=== PATIENT | male | born 1930 | race Hispanic/Latino ===

== ENCOUNTER 2018-01-12 11:25 | Inpatient (IN) | payer MEDICARE, OTHER ==
[2018-01-12 11:25] VITALS: BMI 50.8
[2018-01-12] MEDS ORDERED: Vancomycin 1gm in NS 250ml 1 GM/250 ML BAG IVPB STA (12:15)
[2018-01-12] MEDS ORDERED: cefTRIAXone 1 gm 1 GM/100 ML BAG IVPB SCH (12:15)
--- NOTE | 2018-01-12 12:16 | ED PDOC ---
Arrival/HPI - General Chief Complaint: Back Pain Time Seen by Provider: 01/12/18 11:26 Historian: Patient - History of Present Illness Narrative History of Present Illness (Text): 01/12/18 12:13 Flako Santana is an 87 year old male, whose past medical history includes CAD , Diabetes, and Dementia, who presents to the emergency department complaining of back pain for a few days/ Patient is a poor historian, history received from daughter who is patient's power of commercial litigation attorney. Today, nursing home aide noticed an ulcer to patient's lower spine. Daughter notes that patient sits and sleeps in his recliner chair all day. Patient denies any fever or any other complaints at this time. Time/Duration: < week Symptom Onset: Gradual Symptom Course: Unchanged Activities at Onset: Rest Context: Home Past Medical History - Provider Review Nursing Documentation Reviewed: Yes - Infectious Disease Hx of Infectious Diseases: None - Tetanus Immunization Tetanus Immunization: Unknown - Cardiac Hx Cardiac Disorders: Yes Hx Hypertension: Yes - Pulmonary Hx Tuberculosis: No - Neurological Hx Dementia: (? from previous chart) - HEENT Hx HEENT Disorder: Yes Other/Comment: [place] - Renal Hx Renal Disorder: No - Endocrine/Metabolic Hx Endocrine Disorders: Yes Hx Diabetes Mellitus Type 2: Yes - Hematological/Oncological Hx Blood Disorders: No Hx Cancer: No - Integumentary Hx Dermatological Disorder: No - Musculoskeletal/Rheumatological Hx Musculoskeletal Disorders: Yes Hx Back Pain: Yes - Gastrointestinal Hx Gastrointestinal Disorders: No - Genitourinary/Gynecological Hx Genitourinary Disorders: No - Psychiatric Hx Psychophysiologic Disorder: Yes Hx Anxiety: Yes Hx Depression: Yes Hx Schizophrenia: Yes Hx Substance Use: No - Past Surgical History Past Surgical History: Non-Contributing - Surgical History Hx Coronary Stent: Yes - Anesthesia Hx Anesthesia: Yes Hx Anesthesia Reactions: No Hx Malignant Hyperthermia: No - Suicidal Assessment Feels Threatened In Home Enviroment: No Family/Social History - Physician Review Nursing Documentation Reviewed: Yes Family/Social History: No Known Family HX Smoking Status: Never Smoked Hx Alcohol Use: No Hx Substance Use: No Hx Substance Use Treatment: No Allergies/Home Meds Allergies/Adverse Reactions: Allergies No Known Allergies Allergy (Verified 01/12/18 11:58) Home Medications: Home Meds Medication Instructions Recorded Confirmed ARIPiprazole [Abilify] 10 mg PO DAILY 01/12/18 01/12/18 Ascorbic Acid [Vitamin C 250 mg 1 tab PO DAILY 01/12/18 01/12/18 Tab] Cranberry Fruit Extract [Cranberry 500 mg PO BID 01/12/18 01/12/18 Concentrate] Insulin Detemir [Levemir] 10 unit SC 01/12/18 01/12/18 Latanoprost 0.005% Opht [Xalatan 1 drop OU HS 01/12/18 01/12/18 Opht] rOPINIRole [Requip] 0.25 mg PO BID 01/12/18 01/12/18 Review of Systems - Physician Review All systems were reviewed & negative as marked: Yes - Review of Systems Constitutional: absent: Fevers, Night Sweats Eyes: absent: Vision Changes ENT: absent: Hearing Changes Respiratory: absent: SOB, Cough Cardiovascular: absent: Chest Pain Gastrointestinal: absent: Abdominal Pain, Stool Changes Genitourinary Male: absent: Dysuria Musculoskeletal: absent: Arthralgias Skin: Ulcer (to lower back) Neurological: absent: Headache Endocrine: absent: Diaphoresis Hemo/Lymphatic: absent: Adenopathy Psychiatric: absent: Anxiety, Depression Physical Exam Vital Signs Reviewed: Yes Vital Signs Temp Pulse Resp BP Pulse Ox 01/12/18 15:25 67 18 122/69 97 01/12/18 14:43 18 01/12/18 13:07 64 18 124/71 97 01/12/18 11:39 97.9 F 68 18 126/76 97 Temperature: Afebrile Blood Pressure: Normal Pulse: Regular Respiratory Rate: Normal Appearance: Positive for: Well-Appearing, Non-Toxic, Comfortable Pain Distress: None Mental Status: Positive for: Alert and Oriented X 3 - Systems Exam Head: Present: Atraumatic, Normocephalic Pupils: Present: PERRL Extroacular Muscles: Present: EOMI Conjunctiva: Present: Normal Mouth: Present: Moist Mucous Membranes Neck: Present: Normal Range of Motion Respiratory/Chest: Present: Clear to Auscultation, Good Air Exchange. No: Respiratory Distress, Accessory Muscle Use Cardiovascular: Present: Regular Rate and Rhythm, Normal S1, S2. No: Murmurs Abdomen: No: Tenderness, Distention, Peritoneal Signs Back: Present: Other (2 cm erythematous ulcer to spinal process of lumbar spine) Upper Extremity: Present: Normal Inspection. No: Cyanosis, Edema Lower Extremity: Present: Normal Inspection. No: Edema Neurological: Present: GCS=15, CN II-XII Intact, Speech Normal Skin: Present: Warm, Dry, Normal Color, Other ((+)stage 1 presure ulcer lumbar with surroudign erytehma 3-4 cm). No: Rashes Psychiatric: Present: Alert, Oriented x 3, Normal Insight, Normal Concentration Medical Decision Making ED Course and Treatment: 01/12/18 12:18 Impression: 87 year old male complaining of lower back pain for a few days. Plan: -- Lumbar Spine CT w/o contrast -- Blood Culture -- Urine Culture -- Urinalysis -- Labs -- Rocephin and Vancomycin -- Reassess and disposition Prior Visits: Notes and results from previous visits were reviewed. Patient was last seen in the emergency department on 11/17/16 for chronic back pain. Patient was discharged. Progress Notes: 01/12/18 13:40 CT Lumbar Spine without contrast Creator : Flako Benedict MD FINDINGS: VERTEBRAE: Severe vertebral compression fractures are seen at L2 and L4. There is a mild compression of the superior endplate of L5. These findings were not present on the previous CT DISCS/SPINAL CANAL/NEURAL FORAMINA: L1-2: Severe compression fracture of L2 with encroachment of the spinal canal. There is mild stenosis L2-3: Severe compression fracture of L2. Moderate disc bulge. No significant stenosis L3-4: Moderate central stenosis. Severe disc degeneration L4-5: Disc bulge and degeneration. Severe compression fracture of L4 with moderate encroachment of the spinal canal L5-S1: Disc degeneration without stenosis PARASPINAL SOFT TISSUES:Unremarkable. OTHER FINDINGS:None. IMPRESSION: Severe vertebral compression deformities at L2 and L4. See comments Case discussed with Dr. Ngo, who is aware and accepts patient admission to his service. - Lab Interpretations Microbiology Results: Microbiology Results 01/12/18 13:00 Blood Blood Culture - Preliminary NO GROWTH AFTER 24 HOURS 01/12/18 12:58 Blood Blood Culture - Preliminary NO GROWTH AFTER 24 HOURS Lab Results: 01/12/18 12:58 01/12/18 12:58 Lab Results 01/12/18 12:58: Sodium 135, Potassium 5.1 H, Chloride 98, Carbon Dioxide 24, Anion Gap 19, BUN 19, Creatinine 0.7 L, Est GFR ( Amer) > 60, Est GFR ( Non-Af Amer) > 60, Random Glucose 546 H* D, Calcium 9.3, Total Bilirubin 0.6, AST 112 H, ALT 146 H, Alkaline Phosphatase 137 H, Total Protein 7.4, Albumin 4.1 , Globulin 3.3, Albumin/Globulin Ratio 1.2 01/12/18 12:58: PT 11.8, INR 1.03, APTT 39.4 H 01/12/18 12:58: WBC 4.7, RBC 4.30, Hgb 12.9 L, Hct 37.3 L, MCV 86.7, MCH 30.0, MCHC 34.6, RDW 13.3, Plt Count 137, MPV 10.2, Gran % 66.0, Lymph % (Auto) 27.4, [place] % (Auto) 5.8, Eos % (Auto) 0.4 L, Baso % (Auto) 0.4, Gran # 3.09, Lymph # ( Auto) 1.3, [place] # (Auto) 0.3, Eos # (Auto) 0.0, Baso # (Auto) 0.02, ESR 38 H I have reviewed the lab results: Yes - RAD Interpretation Radiology Orders: 01/12/18 12:13 LUMBAR SPINE W/O CONTRAST [CT] Stat - Medication Orders Current Medication Orders: Aripiprazole (Abilify) 15 mg PO DAILY [facility] PRN Reason: Protocol Ascorbic Acid (Vitamin C 500 Mg Tab) 250 mg PO DAILY [facility] Last Admin: 01/13/18 10:33 Dose: 250 mg Calcitonin [place] (Miacalcin) 200 intlu NS DAILY [facility] Last Admin: 01/13/18 13:25 Dose: 1 inhaler Calcium Carbonate (Caltrate) 600 mg PO DAILY [facility] Last Admin: 01/13/18 11:36 Dose: 600 mg Clonidine HCl (Catapres) 0.1 mg PO Q6H PRN PRN Reason: Other Docusate Sodium (Colace) 100 mg PO BID [facility] Last Admin: 01/13/18 10:33 Dose: 100 mg Enoxaparin Sodium (Lovenox) 30 mg SC DAILY [facility] PRN Reason: Protocol Last Admin: 01/13/18 10:34 Dose: 30 mg Subcutaneous Administrations Document 01/13/18 10:34 MJO (Rec: 01/13/18 10:34 [place] [facility] [id number][place] Injection Site MAR Injection Site Right Abdomen Charges for Administration # of Subcutaneous Administrations 1 Ergocalciferol (Drisdol 50,000 Intl Units Cap) 1 cap PO Q7D [facility] Last Admin: 01/13/18 11:36 Dose: 1 cap Ferrous Sulfate (Feosol) 324 mg PO BID [facility] Last Admin: 01/13/18 10:33 Dose: 324 mg Furosemide (Lasix) 20 mg PO DAILY [facility] Last Admin: 01/13/18 10:34 Dose: 20 mg MAR Blood Pressure Document 01/13/18 10:34 MJO (Rec: 01/13/18 10:34 MJO [facility] [id number][place] Blood Pressure Blood Pressure (100/60-150/90) 158/60 Glipizide (Glucotrol) 5 mg PO ACB [facility] Last Admin: 01/13/18 10:34 Dose: 5 mg Insulin Detemir (Levemir) 20 unit SC [facility] Last Admin: 01/12/18 22:39 Dose: 20 unit MAR Blood Glucose Document 01/12/18 22:39 IMT (Rec: 01/12/18 22:39 IMT [id number]) Blood Glucose Finger Stick Blood Glucose (70-120) 289 Subcutaneous Administrations Document 01/12/18 22:39 IMT (Rec: 01/12/18 22:39 IMT [id number]) Injection Site MAR Injection Site Left Arm Charges for Administration # of Subcutaneous Administrations 1 Insulin Human Regular (Humulin R Low) 0 units SC [facility] PRN Reason: Protocol Last Admin: 01/13/18 11:35 Dose: 3 units MAR Blood Glucose Document 01/13/18 11:35 MJO (Rec: 01/13/18 11:35 MJO [facility] [id number][place] Blood Glucose Finger Stick Blood Glucose (70-120) 268 Subcutaneous Administrations Document 01/13/18 11:35 MJO (Rec: 01/13/18 11:35 MJO [facility] [place][id number][place] Injection Site MAR Injection Site Right Arm Charges for Administration # of Subcutaneous Administrations 1 Latanoprost (Xalatan Opht) 0.02 ml OU HS [facility] Last Admin: 01/12/18 22:38 Dose: 0.02 ml Lidocaine (Lidoderm) 1 ea TD DAILY [facility] Last Admin: 01/13/18 10:32 Dose: 1 ea MAR Transdermal Patch Site Document 01/13/18 10:32 MJO (Rec: 01/13/18 10:33 MJO [facility] [id number][place] Transdermal Patch Site Transdermal Patch Site Right Lower Back Oxycodone HCl (Oxycodone Immediate Release Tab) 5 mg PO Q6H PRN PRN Reason: Pain, severe (8-10) Last Admin: 01/13/18 10:33 Dose: 5 mg MAR Pain Assessment Document 01/13/18 10:33 MJO (Rec: 01/13/18 10:33 MJO [facility] [place][id number][place] Pain Reassessment Is this a pain reassessment? No Sleep Is patient sleeping during reassessment? No Presence of Pain Presence of Pain Yes Pain Scale Used Pain Scale Used Numeric Location Pain Location Body Site Back Description Description Intermittent Intensity of Pain at present 8 Pain Behavior Facial Grimacing Aggravating Factors Changing Position Alleviating Factors/Management Medication Techniques Alleviating Factors Medication Re-Assess: MAR Pain Assessment Document 01/13/18 11:32 MJO (Rec: 01/13/18 11:32 MJO [facility] [id number][place] Pain Reassessment Is this a pain reassessment? Yes Sleep Is patient sleeping during reassessment? No Presence of Pain Presence of Pain Yes Pain Scale Used Pain Scale Used Numeric Location Upper or Lower Lower Pain Location Body Site Back Description Description Intermittent Intensity of Pain at present 5 Pantoprazole Sodium (Protonix Ec Tab) 40 mg PO 0600 [facility] Last Admin: 01/13/18 05:09 Dose: Not Given Non-Admin Reason: Patient Asleep Pregabalin (Lyrica) 50 mg PO BID [facility] Last Admin: 01/13/18 15:34 Dose: 50 mg Ropinirole HCl (Requip) 0.25 mg PO BID [facility] Last Admin: 01/13/18 10:33 Dose: 0.25 mg Silver Sulfadiazine (Silvadene 1% 25 Gm) 1 gm TP DAILY [facility] Last Admin: 01/13/18 10:28 Dose: 1 gm Tamsulosin HCl (Flomax) 0.4 mg PO DAILY [facility] Last Admin: 01/13/18 10:34 Dose: 0.4 mg Discontinued Medications Aripiprazole (Abilify) 10 mg PO DAILY [facility] PRN Reason: Protocol Last Admin: 01/13/18 10:45 Dose: 10 mg Behavioural Document 01/13/18 10:45 MJO (Rec: 01/13/18 10:45 MJO [facility] [id number][place] Maintenance Maintenance Dose Yes Re-Assess: Reassess Psych Meds Document 01/13/18 11:45 MJO (Rec: 01/13/18 11:55 MJO [id number]) Reassess Psych Med Ineffective-LIP notifed Ceftriaxone Sodium (Rocephin 1 Gram Ivpb) 1 gm in 100 mls @ 100 mls/hr IVPB DAILY [facility] PRN Reason: Protocol Last Admin: 01/12/18 13:10 Dose: 100 mls/hr eMAR Start Stop Document 01/12/18 13:10 ALFREDO (Rec: 01/12/18 14:23 ALFREDO [id number]) Intravenous Solution Start Date 01/12/18 Start Time 13:10 End Date 01/12/18 End time 13:40 Total Infusion Time 30 Vancomycin HCl (Vancomycin 1gm) 1 gm in 250 mls @ 167 mls/hr IVPB STAT [facility] PRN Reason: Protocol Stop: 01/12/18 13:44 Last Admin: 01/12/18 14:24 Dose: 167 mls/hr eMAR Start Stop Document 01/12/18 14:24 ALFREDO (Rec: 01/12/18 14:24 ALFREDO [id number]) Intravenous Solution Start Date 01/12/18 Start Time 14:24 End Date 01/12/18 End time 15:54 Total Infusion Time 90 Sodium Chloride (Sodium Chloride 0.9%) 1,000 mls @ 999 mls/hr IV .Q1H1M STA Stop: 01/12/18 14:30 Last Admin: 01/12/18 14:25 Dose: 999 mls/hr eMAR Start Stop Document 01/12/18 14:25 ALFREDO (Rec: 01/12/18 14:26 ALFREDO [id number]) Intravenous Solution Start Date 01/12/18 Start Time 14:26 End Date 01/12/18 End time 15:26 Total Infusion Time 60 Insulin Human Regular (Humulin R) 8 units IV STAT STA Stop: 01/12/18 13:32 Last Admin: 01/12/18 14:37 Dose: 8 units eMAR Start Stop Document 01/12/18 14:37 ALFREDO (Rec: 01/12/18 14:38 ALFREDO [id number]) Intravenous Solution Start Date 01/12/18 Start Time 14:35 End Date 01/12/18 End time 14:37 Total Infusion Time 2 MAR Blood Glucose Document 01/12/18 14:37 ALFREDO (Rec: 01/12/18 14:38 ALFREDO [id number]) Blood Glucose Finger Stick Blood Glucose (70-120) 546 - Scribe Statement The provider has reviewed the documentation as recorded by the Scribe Karin Avila Provider Scribe Attestation: All medical record entries made by the Scribe were at my direction and personally dictated by me. I have reviewed the chart and agree that the record accurately reflects my personal performance of the history, physical exam, medical decision making, and the department course for this patient. I have also personally directed, reviewed, and agree with the discharge instructions and disposition. Disposition/Present on Arrival - Present on Arrival Any Indicators Present on Arrival: No History of DVT/PE: No History of Uncontrolled Diabetes: No Urinary Catheter: No History of Decub. Ulcer: No History Surgical Site Infection Following: None - Disposition Have Diagnosis and Disposition been Completed?: Yes Diagnosis: Cellulitis, Pressure ulcer, Hyperglycemia, Compression fracture Disposition: HOSPITALIZED Disposition Time: 10:00 Condition: STABLE
[2018-01-12 13:25] LABS: BASO # 0.02 K/mm3 (0.0-2.0); BASO % 0.4 % (0.0-3.0); EOS % 0.4 % (1.5-5.0); GRAN # 3.09 (1.4-6.5); HEMOGLOBIN 12.9 g/dL (14.0-18.0); LYMPH # 1.3 (1.2-3.4); LYMPH % 27.4 % (22.0-35.0); MEAN CELL VOLUME 86.7 fl (80.0-105.0); MEAN CORPUSCULAR HGB CONC 34.6 g/dl (31.0-37.0); MEAN PLATELET VOLUME 10.2 fl (7.0-11.0); MONO # 0.3 (0.1-0.6); MONO % 5.8 % (1.0-6.0); RBC 4.3 10^6/uL (3.5-6.1); RED CELL DISTRIBUTION WIDTH 13.3 % (11.5-14.5); WHITE BLOOD COUNT 4.7 10^3/ul (4.5-11.0)
[2018-01-12 13:30] LABS: ALB/GLOB RATIO 1.2 (1.1-1.8); ALBUMIN 4.1 g/dL (3.0-4.8); ALT/SGPT 146 U/L (7-56); AST/SGOT 112 U/L (17-59); BLOOD UREA NITROGEN 19 mg/dL (7-21); CALCIUM 9.3 mg/dL (8.4-10.5); GFR AFRICAN-AMERICAN > 60; GFR NON-AFRICAN AMERICAN > 60
[2018-01-12] MEDS ORDERED: Sodium Chloride 0.9% 1,000 ML IV STA (13:30)
[2018-01-12] MEDS ORDERED: Insulin Regular 1 UNITS/0.01 ML ML IV STA (13:31)
[2018-01-12 13:33] LABS: INR 1.03 (0.93-1.08); PARTIAL THROMBOPLASTIN TIME 39.4 Seconds (25.1-36.5); PROTHROMBIN TIME 11.8 SECONDS (9.4-12.5)
--- NOTE | 2018-01-12 13:35 | CT ---
PROCEDURE: CT Lumbar Spine without contrast HISTORY: low back pain, h/o of pressure ulcer COMPARISON: CT of the abdomen and pelvis 09/30/2016 TECHNIQUE: Axial computed tomography images were obtained of the lumbar spine without the use of intravenous contrast. Coronal and sagittal reformatted images were created and reviewed. Radiation dose: Total exam DLP = 345 mGy-cm. This CT exam was performed using one or more of the following dose reduction techniques: Automated exposure control, adjustment of the mA and/or kV according to patient size, and/or use of iterative reconstruction technique. FINDINGS: VERTEBRAE: Severe vertebral compression fractures are seen at L2 and L4. There is a mild compression of the superior endplate of L5. These findings were not present on the previous CT DISCS/SPINAL CANAL/NEURAL FORAMINA: L1-2: Severe compression fracture of L2 with encroachment of the spinal canal. There is mild stenosis L2-3: Severe compression fracture of L2. Moderate disc bulge. No significant stenosis L3-4: Moderate central stenosis. Severe disc degeneration L4-5: Disc bulge and degeneration. Severe compression fracture of L4 with moderate encroachment of the spinal canal L5-S1: Disc degeneration without stenosis PARASPINAL SOFT TISSUES: Unremarkable. OTHER FINDINGS: None. IMPRESSION: Severe vertebral compression deformities at L2 and L4. See comments
--- NOTE | 2018-01-12 18:42 | CP.PCM.CON ---
History of Present Illness - History of Present Illness History of Present Illness: Surgery Flako Santana is an 87 year old male, whose past medical history includes bipolar, CAD, Diabetes, and Dementia, who presents to the emergency department complaining of back pain for a few days. Surgery is consulted to evaluate for pressure ulcer on the back. Patient is a poor historian and is agitated. history received from daughter who is patient's power of attorney at law. Today, home and school visitor noticed an ulcer to patient's lower spine. Daughter notes that patient sits and sleeps in his recliner chair all day. Patient denies any fever or any other complaints at this time. Pt c/o back pain. PMH : bipolar, CAD, Diabetes, and Dementia Review of Systems - Review of Systems Review of Systems: See HPI Past Patient History - Infectious Disease Hx of Infectious Diseases: None - Tetanus Immunizations Tetanus Immunization: Unknown - Past Medical History & Family History Past Medical History?: Yes - Past Social History Smoking Status: Unknown If Ever Smoked - CARDIAC Hx Cardiac Disorders: Yes Hx Hypertension: Yes - PULMONARY Hx Respiratory Disorders: No - NEUROLOGICAL Hx Neurological Disorder: Yes Hx Dementia: Yes - HEENT Hx HEENT Problems: Yes Other/Comment: hard of hearing - RENAL Hx Chronic Kidney Disease: No - ENDOCRINE/METABOLIC Hx Endocrine Disorders: Yes Hx Diabetes Mellitus Type 2: Yes - HEMATOLOGICAL/ONCOLOGICAL Hx Blood Disorders: No - INTEGUMENTARY Hx Dermatological Problems: No - MUSCULOSKELETAL/RHEUMATOLOGICAL Hx Musculoskeletal Disorders: Yes Hx Back Pain: Yes Hx Falls: No - GASTROINTESTINAL Hx Gastrointestinal Disorders: No - GENITOURINARY/GYNECOLOGICAL Hx Genitourinary Disorders: No - PSYCHIATRIC Hx Psychophysiologic Disorder: Yes Hx Anxiety: Yes Hx Depression: Yes Hx Paranoia: Yes Hx Schizophrenia: Yes Hx Substance Use: No - SURGICAL HISTORY Hx Surgeries: Yes Hx Coronary Stent: Yes Other/Comment: coronary stent - ANESTHESIA Hx Anesthesia: Yes Hx Anesthesia Reactions: No Hx Malignant Hyperthermia: No Meds Allergies/Adverse Reactions: Allergies Allergy/AdvReac Type Severity Reaction Status Date / Time No Known Allergies Allergy Verified 01/12/18 11:58 - Medications Medications: Current Medications Aripiprazole (Abilify) 10 mg PO DAILY [facility] PRN Reason: Protocol Ascorbic Acid (Vitamin C 500 Mg Tab) 250 mg PO DAILY [facility] Clonidine HCl (Catapres) 0.1 mg PO Q6H PRN PRN Reason: Other Docusate Sodium (Colace) 100 mg PO BID [facility] Last Admin: 01/12/18 18:27 Dose: Not Given Enoxaparin Sodium (Lovenox) 30 mg SC DAILY [facility] PRN Reason: Protocol Ferrous Sulfate (Feosol) 324 mg PO BID [facility] Furosemide (Lasix) 20 mg PO DAILY [facility] Glipizide (Glucotrol) 5 mg PO ACB [facility] Ceftriaxone Sodium (Rocephin 1 Gram Ivpb) 1 gm in 100 mls @ 100 mls/hr IVPB DAILY [facility] PRN Reason: Protocol Last Admin: 01/12/18 13:10 Dose: 100 mls/hr Insulin Detemir (Levemir) 20 unit SC HS [facility] Insulin Human Regular (Humulin R Low) 0 units SC ACHS [facility] PRN Reason: Protocol Latanoprost (Xalatan Opht) 0.02 ml OU HS [facility] Lidocaine (Lidoderm) 1 ea TD DAILY [facility] Oxycodone HCl (Oxycodone Immediate Release Tab) 5 mg PO Q6H PRN PRN Reason: Pain, severe (8-10) Pantoprazole Sodium (Protonix Ec Tab) 40 mg PO 0600 [facility] Ropinirole HCl (Requip) 0.25 mg PO BID [facility] Silver Sulfadiazine (Silvadene 1% 25 Gm) 1 gm TP DAILY [facility] Tamsulosin HCl (Flomax) 0.4 mg PO DAILY [facility] Physical Exam - Constitutional Appears: No Acute Distress, Agitated - Head Exam Head Exam: ATRAUMATIC, NORMAL INSPECTION, NORMOCEPHALIC - Eye Exam Eye Exam: EOMI, Normal appearance, PERRL Pupil Exam: NORMAL ACCOMODATION, PERRL - ENT Exam ENT Exam: Mucous Membranes Moist, Normal Exam - Neck Exam Neck exam: Positive for: Normal Inspection - Respiratory Exam Respiratory Exam: Clear to Auscultation Bilateral, NORMAL BREATHING PATTERN - Cardiovascular Exam Cardiovascular Exam: REGULAR RHYTHM. absent: Tachycardia - GI/Abdominal Exam GI & Abdominal Exam: Normal Bowel Sounds, Soft. absent: Distended, Tenderness - Rectal Exam Rectal Exam: NORMAL INSPECTION - Exam Exam: NORMAL INSPECTION - Extremities Exam Extremities exam: Positive for: full ROM, normal inspection - Back Exam Back exam: FULL ROM, tenderness. absent: CVA tenderness (L), CVA tenderness (R) , muscle spasm, NORMAL INSPECTION, paraspinal tenderness, rash noted, vertebral tenderness Additional comments: 2x2 3x2 cm excoriation of skin of the spinous processes. Erythema. Stage 1 ulcer - Neurological Exam Neurological exam: Alert, CN II-XII Intact, Normal Gait, Oriented x3, Reflexes Normal - Psychiatric Exam Psychiatric exam: Agitated, Anxious - Skin Skin Exam: Abrasion, Dry, Erythema, Normal Color, Warm Results - Vital Signs Recent Vital Signs: Last Vital Signs Temp 97.4 F L 01/12/18 18:00 Pulse 66 01/12/18 18:00 Resp 20 01/12/18 18:00 BP 154/75 H 01/12/18 18:00 Pulse Ox 100 01/12/18 18:00 - Labs Result Diagrams: 01/12/18 12:58 01/12/18 12:58 Labs: Laboratory Results - last 24 hr 01/12/18 01/12/18 16:08 17:19 POC Glucose (mg/dL) 234 H 229 H Assessment & Plan - Assessment and Plan (Free Text) Assessment: Stage 1 back pressure ulcer -Silvadene -Optiform -turn q2 hrs -air mattress Will AMARIS Taylor covering for Dr. Loo
[2018-01-12] MEDS: Insulin Reg-LOW-Coverage SC SCH (22:35)
[2018-01-12] MEDS: Latanoprost 2.5 ml Opht Soln OU SCH (22:38)
[2018-01-12] MEDS: Insulin Detemir 100 units/ml Vial (Levemir) SC SCH (22:39)
[2018-01-13] MEDS: oxyCODONE 5 mg Immediate Release Tab PO PRN ×2 (00:16→10:33)
[2018-01-13] MEDS: Pantoprazole 40 mg EC Tab PO SCH (05:09)
[2018-01-13 07:06] LABS: ALB/GLOB RATIO 1.1 (1.1-1.8); ALBUMIN 3.5 g/dL (3.0-4.8); ALT/SGPT 136 U/L (7-56); AST/SGOT 117 U/L (17-59); BASO # 0.03 K/mm3 (0.0-2.0); BASO % 0.5 % (0.0-3.0); BLOOD UREA NITROGEN 16 mg/dL (7-21); CALCIUM 8.9 mg/dL (8.4-10.5); EOS # 0.1 (0.0-0.7); EOS % 2.2 % (1.5-5.0); GFR AFRICAN-AMERICAN > 60; GFR NON-AFRICAN AMERICAN > 60; GRAN # 3.2 (1.4-6.5); GRAN % 55.1 % (50.0-68.0); HEMOGLOBIN 12.6 g/dL (14.0-18.0); LYMPH # 2.1 (1.2-3.4); LYMPH % 36.5 % (22.0-35.0); MEAN CELL VOLUME 86.1 fl (80.0-105.0); MEAN CORPUSCULAR HEMOGLOBIN 30.3 pg (25.0-35.0); MEAN CORPUSCULAR HGB CONC 35.2 g/dl (31.0-37.0); MEAN PLATELET VOLUME 9.5 fl (7.0-11.0); MONO # 0.3 (0.1-0.6); MONO % 5.7 % (1.0-6.0); RBC 4.16 10^6/uL (3.5-6.1); RED CELL DISTRIBUTION WIDTH 13.2 % (11.5-14.5); WHITE BLOOD COUNT 5.8 10^3/ul (4.5-11.0)
[2018-01-13] MEDS: Insulin Reg-LOW-Coverage SC SCH ×4 (08:21→22:28)
[2018-01-13] MEDS: Silver Sulfadiazine 1% Cream (25 gm) TP SCH (10:28)
[2018-01-13] MEDS: Lidocaine 5% Patch TD SCH (10:32)
[2018-01-13] MEDS: Enoxaparin 30 mg Syringe SC SCH (10:34)
[2018-01-13] MEDS ORDERED: Ergocalciferol 50,000 Intl Units Cap PO SCH (11:30)
[2018-01-13] MEDS: Calcitonin 200 Int Units/Inh Nasal Spray (3.7 ml) NS SCH (13:25)
[2018-01-13] MEDS: Insulin Detemir 100 units/ml Vial (Levemir) SC SCH (22:32)
[2018-01-13] MEDS: Latanoprost 2.5 ml Opht Soln OU SCH (22:32)
[2018-01-14] MEDS: Insulin Reg-LOW-Coverage SC SCH ×4 (08:30→21:50)
--- NOTE | 2018-01-14 09:50 | CON ---
DATE: HISTORY OF PRESENT ILLNESS: The patient is an 87-year-old white male, well known to me, who was brought into the hospital because of concern over an ulcer on the patient's lower spine. His daughter had noted that he had been sleeping in his recliner all day. The patient is well known to me. In addition to his medical history that includes coronary artery disease, diabetes, he has had a psychiatric diagnosis that defies easy description but which has included the possibility of a schizoaffective disorder and with some demented form features. The patient had been under my care for a number of years with my nurse having interacted with him in September 2016. At that time, he had exhibited an altered mental state, seems somewhat confused and was poorly compliant. It was noted then, as it is noted now that he generally did better when he was compliant with his psychotropic medication (Abilify) which stabilized his mood lability and his disorganized thinking and his irritability and perseverative thinking and speech, but with he always seeking to either lower or stop his medication with poor insight as to why he would take it. In September 2016 admission, he was noted to have perihepatic and perisplenic ascites. The patient is a father of four children, but their involvement in his care has been intermittent. One daughter presently has power of assistant attorney general according to notes. For a number of years, it was recommended that he not live alone, but his children, some of whom are angry with him, blaming him for the of their mother (his ) have been intermittently attentive to his needs. It was at one time, arranged or thought to be arranged that his family would assist in his moving to an assisted-living facility at the [facility], but this apparently has not transpired. It is my understanding that the patient spent some of his time at the [facility] with his children and some of his time in [place], although I have not seen him since his prior admission. He is a twin hills of [place] and has proudly showed me pictures of him in [place] [employer] uniform from the 1920s. Presently, he was able to recognize me, looks as if he has lost a significant amount of weight since my last interaction with him, rambled incessantly with much thought derailment, discussing a number of issues, including my prior care of him, his marriage, his children, being particularly incensed that one of his sons (Dario) had heaped a cursive epithet at him (for reasons uncertain to me). The patient does not have a history of substance abuse. Presently, the patient was seen by Dr. You who evaluated his back pain. A lumbar spine CT scan taken yesterday showed several vertebral compression fractures at L2 and L4 with a mild compression on the superior endplate of L5. These findings were not present at a previous CT scan. The L2 fracture is encroaching on the spinal canal which has mild stenosis. There is a moderate disk bulge with no significant stenosis at L2-L3, L3-L4; has moderate central stenosis with severe disk degeneration, L4-L5; has disk bulge and degeneration with severe compression fracture of L4 with moderate encroachment of the spinal canal, L5-S1 has disk degeneration without stenosis. A CBC with differential shows low hemoglobin of 12.6, hematocrit 35.8, granulocyte percent elevated at 36.5. A biochemical profile showed a slightly elevated creatinine of 0.6 with glucose of 162, AST elevated at 117 and ALT elevated at 136. His urine shows 100 and glucose 500 with trace ketones and moderate blood. PTT on 01/12 was 39.4. The patient is presently being maintained on Caltrate, Catapres, Colace, Drisdol, Feosol, Flomax, Glucotrol, Humulin R ____, Lasix, Levemir, Lidoderm, Lovenox and Lyrica. I have presently increased his Abilify from 10 to 15 mg per day. Blood pressure 158/60, temperature 97.9, pulse 65, respiratory rate 18. DIAGNOSIS: Schizoaffective disorder. The patient is responding and doing better. He is more focused, attentive and interactive, even in a credible, sometimes pleasant way. It is unclear at this juncture, to what extent a dementiform process might interfere with his level of recovery. We will monitor weekly and I will try to speak with the family. Jake Alcaraz MD/ PhD
--- NOTE | 2018-01-14 09:53 | CON ---
DATE: LOCATION: Patient is in room 563, bed 2. Patient was seen earlier this morning. CHIEF COMPLAINT: Back pain times several days. HISTORY OF PRESENT ILLNESS: This is an 87-year-old male, who appears much much older than stated age with history of bipolar, coronary artery disease, hypertension, diabetes, congestive heart failure, dementia, is a poor historian, depression and schizophrenia, BPH, anxiety, high cholesterol, hepatitis C, history of latent tuberculosis and history of cirrhosis of liver, and he is admitted now with back pain. Infectious Disease consultation requested. There has been no fevers reported. No chills are reported. No chest pain. REVIEW OF SYSTEMS: Twelve-point review of systems is performed. PAST MEDICAL HISTORY: Significant for bipolar, coronary artery disease, hypertension, diabetes, congestive heart failure, dementia, depression, schizoaffective, anxiety, high cholesterol, hepatitis C and cirrhosis of the liver and history of latent tuberculosis and patient is a poor historian. PAST SURGICAL HISTORY: Cardiac catheterization with stent placement. ALLERGIES: PATIENT HAS NO KNOWN ALLERGIES. MEDICATIONS: Reviewed. PHYSICAL EXAMINATION: GENERAL: Patient is in bed, in no acute distress, however, chronically ill, appears much older than stated age. VITAL SIGNS: Temperature 97, heart rate 91, blood pressure was 158/60, he did have an episode of blood pressure going down to 87/52, and a respiratory rate of 18, was up to 20. O2 saturation of 98%. HEENT: Unremarkable. NECK: Supple. LUNGS: Have decreased breath sounds. HEART: Normal S1 and S2. ABDOMEN: Soft, nontender. BACK: There are 2 small ulcers on his lower back. No evidence of infection there. LABORATORY EXAMINATION: Reveals a white count of 4.7 with a hemoglobin of 12, sed rate is 38. Chemistries are noted. BUN of 16 and creatinine of 0.6. LFTs are elevated and microbiology with the blood cultures are negative. Patient had a lumbar CT scan, which showed severe vertebral compression fractures and deformities and emergency room chart is noted and Dr. You's consultation was reviewed and severe vertebral compression deformities at L3 and L4 is also seen. ASSESSMENT AND PLAN: This is an 87-year-old male with past medical history of being bipolar, schizoaffective, coronary artery disease, diabetes mellitus, dementia and congestive heart failure, depression, hepatitis C, and cirrhosis of the liver with history of latent tuberculosis, with 2 small ulcers on the lower back, not infected with severe vertebral compression deformities, negative blood culture and a C-reactive protein is low with a sed rate of 38, normal white count. Currently, blood cultures and urine cultures have been ordered. Patient was given a dose of vancomycin. No evidence of infection. We will hold off any antibiotics. We will follow closely with you. Patient appears chronically ill and debilitated. Dickson Brewster MD
[2018-01-14] MEDS: Enoxaparin 30 mg Syringe SC SCH (10:38)
[2018-01-14] MEDS: Lidocaine 5% Patch TD SCH (10:39)
[2018-01-14] MEDS: Calcitonin 200 Int Units/Inh Nasal Spray (3.7 ml) NS SCH (10:40)
--- NOTE | 2018-01-14 11:00 | CP.PCM.PN ---
Subjective - Date & Time of Evaluation Date of Evaluation: 01/14/18 Time of Evaluation: 10:56 - Subjective Subjective: Surgery Progress Note: Patient seen and assessed at bedside. Patient resting comfortably in bed. Patient denies fevers, chills, chest pain, SOB, abdominal pain, N/V/D/C or changes in urine output. Objective - Vital Signs/Intake and Output Vital Signs (last 24 hours): Temp Pulse Resp BP Pulse Ox 98.6 F 70 18 150/69 96 01/14/18 06:00 01/14/18 06:00 01/14/18 06:00 01/14/18 10:36 01/14/18 06:00 Intake and Output: 01/14/18 01/14/18 06:59 18:59 Intake Total 600 Balance 600 - Medications Medications: Current Medications Aripiprazole (Abilify) 15 mg PO DAILY [facility] PRN Reason: Protocol Ascorbic Acid (Vitamin C 500 Mg Tab) 250 mg PO DAILY [facility] Last Admin: 01/14/18 10:37 Dose: 250 mg Calcitonin [place] (Miacalcin) 200 intlu NS DAILY [facility] Last Admin: 01/14/18 10:40 Dose: 1 inhaler Calcium Carbonate (Caltrate) 600 mg PO DAILY [facility] Last Admin: 01/13/18 11:36 Dose: 600 mg Clonidine HCl (Catapres) 0.1 mg PO Q6H PRN PRN Reason: Other Docusate Sodium (Colace) 100 mg PO BID [facility] Last Admin: 01/14/18 10:36 Dose: 100 mg Enoxaparin Sodium (Lovenox) 30 mg SC DAILY [facility] PRN Reason: Protocol Last Admin: 01/14/18 10:38 Dose: 30 mg Ergocalciferol (Drisdol 50,000 Intl Units Cap) 1 cap PO Q7D [facility] Last Admin: 01/13/18 11:36 Dose: 1 cap Ferrous Sulfate (Feosol) 324 mg PO BID [facility] Last Admin: 01/14/18 10:35 Dose: 324 mg Furosemide (Lasix) 20 mg PO DAILY [facility] Last Admin: 01/14/18 10:36 Dose: 20 mg Glipizide (Glucotrol) 5 mg PO ACB [facility] Last Admin: 01/13/18 10:34 Dose: 5 mg Insulin Detemir (Levemir) 20 unit SC HS [facility] Last Admin: 01/13/18 22:32 Dose: 20 unit Insulin Human Regular (Humulin R Low) 0 units SC ACHS [facility] PRN Reason: Protocol Last Admin: 01/13/18 22:28 Dose: Not Given Latanoprost (Xalatan Opht) 0.02 ml OU HS [facility] Last Admin: 01/13/18 22:32 Dose: 0.02 ml Lidocaine (Lidoderm) 1 ea TD DAILY [facility] Last Admin: 01/14/18 10:39 Dose: 1 ea Oxycodone HCl (Oxycodone Immediate Release Tab) 5 mg PO Q6H PRN PRN Reason: Pain, severe (8-10) Last Admin: 01/13/18 10:33 Dose: 5 mg Pantoprazole Sodium (Protonix Ec Tab) 40 mg PO 0600 [facility] Last Admin: 01/13/18 05:09 Dose: Not Given Pregabalin (Lyrica) 50 mg PO BID [facility] Last Admin: 01/14/18 10:38 Dose: 50 mg Ropinirole HCl (Requip) 0.25 mg PO BID [facility] Last Admin: 01/14/18 10:36 Dose: 0.25 mg Silver Sulfadiazine (Silvadene 1% 25 Gm) 1 gm TP DAILY [facility] Last Admin: 01/13/18 10:28 Dose: 1 gm Tamsulosin HCl (Flomax) 0.4 mg PO DAILY [facility] Last Admin: 01/14/18 10:37 Dose: 0.4 mg - Labs Labs: 01/13/18 06:15 01/13/18 06:15 PT 11.8 SECONDS (9.4-12.5) 01/12/18 12:58 INR 1.03 (0.93-1.08) 01/12/18 12:58 APTT 39.4 Seconds (25.1-36.5) H 01/12/18 12:58 - Constitutional Appears: Non-toxic, No Acute Distress - Head Exam Head Exam: ATRAUMATIC, NORMOCEPHALIC - Eye Exam Eye Exam: EOMI, Normal appearance - Respiratory Exam Respiratory Exam: NORMAL BREATHING PATTERN. absent: Accessory Muscle Use, Respiratory Distress - GI/Abdominal Exam GI & Abdominal Exam: Soft. absent: Tenderness - Neurological Exam Neurological Exam: Alert, Awake, Oriented x3 - Psychiatric Exam Psychiatric exam: Normal Affect, Normal Mood - Skin Additional comments: 2x2 and 3x2 cm excoriation of skin of the spinous processes with erythema; stage one pressure ulcer Assessment and Plan - Assessment and Plan (Free Text) Assessment: 87 year old male with stage one pressure ulcer of the back Plan: -Continue wound care with Silvadene/Optifoam applications -Continue Q2H repositioning and air mattress -Discussed with attending Neelima Pereyra PGY1
[2018-01-14] MEDS: Silver Sulfadiazine 1% Cream (25 gm) TP SCH (11:01)
--- NOTE | 2018-01-14 21:11 | CP.PCM.PN ---
Subjective - Date & Time of Evaluation Date of Evaluation: 01/14/18 Time of Evaluation: 13:00 - Subjective Subjective: Back pain is slightly better, no fevers. Objective - Vital Signs/Intake and Output Vital Signs (last 24 hours): Temp Pulse Resp BP Pulse Ox 98.6 F 90 18 96/76 L 96 01/14/18 14:00 01/14/18 14:00 01/14/18 14:00 01/14/18 14:00 01/14/18 14:00 Intake and Output: 01/14/18 01/15/18 18:59 06:59 Intake Total 480 Balance 480 - Medications Medications: Current Medications Aripiprazole (Abilify) 15 mg PO DAILY [facility] PRN Reason: Protocol Last Admin: 01/14/18 11:25 Dose: Not Given Ascorbic Acid (Vitamin C 500 Mg Tab) 250 mg PO DAILY [facility] Last Admin: 01/14/18 10:37 Dose: 250 mg Calcitonin [place] (Miacalcin) 200 intlu NS DAILY [facility] Last Admin: 01/14/18 10:40 Dose: 1 inhaler Calcium Carbonate (Caltrate) 600 mg PO DAILY [facility] Last Admin: 01/14/18 12:48 Dose: 600 mg Clonidine HCl (Catapres) 0.1 mg PO Q6H PRN PRN Reason: Other Docusate Sodium (Colace) 100 mg PO BID [facility] Last Admin: 01/14/18 17:23 Dose: 100 mg Enoxaparin Sodium (Lovenox) 30 mg SC DAILY [facility] PRN Reason: Protocol Last Admin: 01/14/18 10:38 Dose: 30 mg Ergocalciferol (Drisdol 50,000 Intl Units Cap) 1 cap PO Q7D [facility] Last Admin: 01/13/18 11:36 Dose: 1 cap Ferrous Sulfate (Feosol) 324 mg PO BID [facility] Last Admin: 01/14/18 17:23 Dose: 324 mg Furosemide (Lasix) 20 mg PO DAILY [facility] Last Admin: 01/14/18 10:36 Dose: 20 mg Glipizide (Glucotrol) 5 mg PO ACB [facility] Last Admin: 01/14/18 08:30 Dose: Not Given Insulin Detemir (Levemir) 20 unit SC HS [facility] Last Admin: 01/13/18 22:32 Dose: 20 unit Insulin Human Regular (Humulin R Low) 0 units SC ACHS [facility] PRN Reason: Protocol Last Admin: 01/14/18 16:45 Dose: 2 units Latanoprost (Xalatan Opht) 0.02 ml OU HS [facility] Last Admin: 01/13/18 22:32 Dose: 0.02 ml Lidocaine (Lidoderm) 1 ea TD DAILY [facility] Last Admin: 01/14/18 10:39 Dose: 1 ea Oxycodone HCl (Oxycodone Immediate Release Tab) 5 mg PO Q6H PRN PRN Reason: Pain, severe (8-10) Last Admin: 01/13/18 10:33 Dose: 5 mg Pantoprazole Sodium (Protonix Ec Tab) 40 mg PO 0600 [facility] Last Admin: 01/13/18 05:09 Dose: Not Given Pregabalin (Lyrica) 50 mg PO BID [facility] Last Admin: 01/14/18 17:23 Dose: 50 mg Ropinirole HCl (Requip) 0.25 mg PO BID [facility] Last Admin: 01/14/18 17:23 Dose: 0.25 mg Silver Sulfadiazine (Silvadene 1% 25 Gm) 1 gm TP DAILY [facility] Last Admin: 01/14/18 11:01 Dose: 1 gm Tamsulosin HCl (Flomax) 0.4 mg PO DAILY [facility] Last Admin: 01/14/18 10:37 Dose: 0.4 mg - Labs Labs: 01/13/18 06:15 01/13/18 06:15 PT 11.8 SECONDS (9.4-12.5) 01/12/18 12:58 INR 1.03 (0.93-1.08) 01/12/18 12:58 APTT 39.4 Seconds (25.1-36.5) H 01/12/18 12:58 - Constitutional Appears: Chronically Ill - Head Exam Head Exam: NORMAL INSPECTION - Respiratory Exam Respiratory Exam: Decreased Breath Sounds - Cardiovascular Exam Cardiovascular Exam: +S1, +S2 - GI/Abdominal Exam GI & Abdominal Exam: Soft. absent: Tenderness Assessment and Plan - Assessment and Plan (Free Text) Plan: Assessment lumbar compression fractures; no evidence of bacterial infection or sepsis CAD with chronic CHF DM HTN BPH history of hepatitis C history of latent TB schizophrenia bipolar disorder Plan continue to monitor off antibiotics since he is at risk for nosocomial infections
[2018-01-14] MEDS: Latanoprost 2.5 ml Opht Soln OU SCH (21:51)
[2018-01-14] MEDS: Insulin Detemir 100 units/ml Vial (Levemir) SC SCH (21:51)
[2018-01-15] MEDS: oxyCODONE 5 mg Immediate Release Tab PO PRN ×3 (00:26→17:34)
--- NOTE | 2018-01-15 04:47 | PN ---
DATE: 01/14/2018 SUBJECTIVE: The patient is an 87-year-old white male with schizoaffective disorder and perhaps some dementia. The patient is alert, he is sitting in his chair, he appears to be more robust, less irritable than yesterday, and is less perseverative than yesterday and less agitated than yesterday. Whether this is due to his improved health status because he is hospitalized, or because of increase in his Abilify, or both is uncertain at this juncture. PLAN: I have discussed the patient's case with nursing and has given my approval that this patient is likely to benefit from transfer to the Transitional Care Unit. His laboratory values were reviewed with his morning glucose 187. Blood pressure 150/69. Will maintain on present medication. Supportive therapy offered. Jake Alcaraz MD/ PhD
[2018-01-15] MEDS: Pantoprazole 40 mg EC Tab PO SCH (07:31)
--- NOTE | 2018-01-15 08:26 | HP ---
CHIEF COMPLAINT: The patient came in because of a large sacral decubitus in his spine. HISTORY OF PRESENT ILLNESS: The patient is an 87-year-old male with history of psychiatric problem, chronic back pain, diabetes, hypertension, chronic , hepatitis C. The patient came in by the daughter and nurse brought in, has been seen in Surgery and was called in to be admitted at [facility]. The patient seems to be lying down more time on his back, not moving a lot. He does not want to go to [facility]. He does not want to go any place; so, he is staying at home with some assistance from nurses and homemakers and daughters, but developed an ulcer in his back, was admitted for evaluation for osteomyelitis, cellulitis. He does also have a history of psychiatric problems, paranoid disorders. At this time, he denied any nausea, any vomiting, any fever, nothing reported by his daughter except a large decubitus ulcer in the spine, possibly exposing the bones. There is no other complaint. PAST MEDICAL HISTORY: As I mentioned, he does have chronic back pain, chronic , he does have paranoid disorder, psychosis. He has diabetes type 2, hypertension, history of chronic pancreatitis at one time, chronic hepatitis C, chronic leg pain, sciatica. HOME MEDICATIONS: Abilify 10 mg p.o. daily. He takes also vitamin C, Requip 0.25 mg b.i.d., Lidoderm patch, Glucotrol 5 mg a.c. breakfast. He takes also insulin Levemir 10 units subcu every at bedtime, Protonix 40 p.o. daily, iron pills twice a day, Colace b.i.d., Catapres 0.1 mg every 6 hours p.r.n. for high blood pressure. He is taking also Xalatan drops one drop each eye once a day. He also has Flomax 0.4 mg once a day, Lasix 20 mg once a day. ALLERGIES: NO KNOWN ALLERGY. SOCIAL HISTORY: He does not smoke or drink. He lives in by himself with some assistance, daughter's assistance, nurse's assistance. The patient refused to go to [place] [facility]. He does have psychosis. REVIEW OF SYSTEMS: Also has psychosis, has sometimes depression, interpersonal relationship with his daughter and to son, he feels sometimes being blamed for the of his , which makes him a kind of depressed and crying. He also has chronic back pain, chronic arthritis, sometimes constipation. PHYSICAL EXAMINATION: VITAL SIGNS: On 01/13/2018, his temperature is 97.9, heart rate 91, blood pressure was 130/71, respirations 18, sat 98% on room air. HEAD AND NECK: Normal. No JVD. No thyromegaly. CHEST: Clear. Good air entry. CARDIAC: First sound and second sound are normal. ABDOMEN: Soft, nontender. EXTREMITIES: No edema. NEUROLOGIC: Normal, except he has general weakness, needs assistance with walk. BACK: There is large spine problem and large ulcer in the upper lumbar area, which is a kind of deep, covered, and also has a small sacral decubiti in the bottom of his lower sacral area. LABORATORY STUDY: White count 5.8, hemoglobin 12.6, hematocrit 35.8, platelets . Chemistry noted for sodium 137, potassium 4.2, chloride 101, bicarb 26, BUN 16, creatinine 0.6, blood sugar 162. Also AST 117, ALT 136. The patient also has a PT, which is normal, 1.03; PTT 39.4. The patient also had lumbar spine CT, which has been read as severe compression fracture deformity at L2 and L3. There is no obvious osteomyelitis on the CT. IMPRESSION AND PLAN: 1. This is an 87-year-old male with decubitus ulcer in his upper lumbar spine area, seems deep, cellulitic. We will admit the patient for IV antibiotic. We will get an Infectious Disease consult to rule out any osteomyelitis and we will get a surgical consult with Dr. Loo to help us with the treatment of the ulcer. Wound care nurse will look at that too. We will do local treatments and dressing changes. 2. He does have chronic back pain, diabetes, hypertension. We will resume all his medications. 3. The patient does have paranoia, psychosis disorder, with some depressive symptoms. We will get back to Dr. Alcaraz, psychiatrist, to evaluate him. We will continue current therapy. Resume his meds. Get gastrointestinal and deep vein thrombosis prophylaxis, and we will follow up clinically. Ike Ngo MD [facility] # [id number]
[2018-01-15] MEDS: Enoxaparin 30 mg Syringe SC SCH (10:03)
[2018-01-15] MEDS: Insulin Reg-LOW-Coverage SC SCH ×3 (10:05→17:35)
[2018-01-15] MEDS: Lidocaine 5% Patch TD SCH (10:05)
[2018-01-15] MEDS: Silver Sulfadiazine 1% Cream (25 gm) TP SCH (10:06)
[2018-01-15] MEDS: Calcitonin 200 Int Units/Inh Nasal Spray (3.7 ml) NS SCH (10:06)
--- NOTE | 2018-01-15 15:26 | PN ---
DATE: 01/15/2018 SUBJECTIVE: The patient seems doing well, is comfortable, sitting on a chair. No chest pain. Does not complain of any pain. He is willing to walk. He did walk with a walker with assistance, doing well. PHYSICAL EXAMINATION: Please see note for 01/14/2018. VITAL SIGNS: Temperature 98.6, heart rate 94, blood pressure 147/87, respirations 18, sat 96% on room air. HEAD AND NECK: Normal. No JVD. No thyromegaly. CHEST: Clear. Good air entry. CARDIAC: First sound and second sound normal. There is systolic murmur. ABDOMEN: Soft, nontender. EXTREMITIES: There is no edema. NEUROLOGICAL: Move all extremities. He is alert, awake. The patient seems talking irrelevant facts to the present problem and seen by psychiatrist. BACK: The back exam shows large sacral decubitus. He did notice a large ulcer on the upper lumbar area in the midline covered with a gauze. There is lower decubitus ulcer in the lower sacral area. LABORATORY DATA: Noted for sugar in the 100-200 range. IMPRESSION AND PLAN: 1. There is decubitus in the lower back area. We will continue local wound care, Silvadene. Local wound care everyday. The patient seen by Wound Care people. There is no osteomyelitis on the CAT scan. There is only multiple compression fracture, which is old. We will continue local wound care. 2. The patient does have chronic psychosis. As per psychiatrist, possible schizoaffective disorder. We will continue the Abilify 15 mg p.o. daily. Seen by Dr. Alcaraz. Continue current therapy. 3. Diabetes, insulin dependent. Continue Levemir 20 units subcu at bedtime plus insulin coverage and Glucotrol 5 mg before breakfast. We may need to increase that, but we will see how the patient do. Risk of hypoglycemia is considered to be high with the patient lives most of the time by himself. 4. Hypertension, stable. Chronic leg edema, seems doing well with Lasix 20 p.o. daily. 5. Leg cramps, doing okay with Requip. May need to increase it if he continue have any complaint. His underlying glaucoma treated with Xalatan according to orders plus Lyrica 50 mg b.i.d. for his leg cramps. We will monitor his inputs. Continue gastrointestinal and deep venous thrombosis prophylaxis. Continue vitamin D, calcium. The patient may benefit from physical therapy and Transitional Care Unit evaluation. At this time, continue Abilify 15 mg at bedtime, calcium citrate, Catapres 0.1 every 6 hours p.r.n., Colace, vitamin D, iron pills, Flomax 0.4, Glucotrol 5 mg before breakfast, Lasix 20 p.o. daily, Levemir 20 units subcu at bedtime, Lidoderm 1 daily, Lovenox 30 subcu daily, Lyrica 50 b.i.d., calcitonin daily intranasally and Ultram for his compression fractures. Continue oxycodone 5 mg every 6 hours, pantoprazole 40 mg daily, Requip 0.25 b.i.d., Silvadene, vitamin C and Xalatan ophthalmic drops. Ike Ngo MD
--- NOTE | 2018-01-15 18:39 | PN ---
DATE: 01/15/2018 SUBJECTIVE: The patient is an 87-year-old white male with schizoaffective disorder. The patient is alert, oriented, experiencing about a number of issues. He had apparently read a new local newspaper and is talking about the story of an being thrown into a garbage dump, speaking about emigrants trying to come in from [place], etc. As this is pattern, he is difficult to terminate conversation with as he tends to go "on and on" with no logical abbreviation point. This is often times his baseline behavior. He is later to go to the transitional care unit. I have reviewed his situation with Nursing. The patient has not been considered to be in a management problem. He missed his Abilify yesterday for reasons uncertain, but should be getting 15 mg daily. He is also on calcium carbonate, Catapres, Colace, ergocalciferol, Feosol, Flomax, Glucotrol, insulin, Lasix, Levemir, Lovenox, Lyrica. CBC and differential yesterday showed hemoglobin 12 . Blood sugar this morning was 170. Blood pressure 134/68, temperature 97.4, pulse 62, respiratory rate 22. Jake Alcaraz MD/ PhD
[2018-01-15] MEDS: Insulin Detemir 100 units/ml Vial (Levemir) SC SCH (22:44)
[2018-01-15] MEDS: Latanoprost 2.5 ml Opht Soln OU SCH (22:45)
[2018-01-15 23:15] VITALS: RESP 20
--- NOTE | 2018-01-16 01:13 | PN ---
DATE: 01/15/2018 SUBJECTIVE: The patient is in bed in no acute distress, was seen early this morning in room 563, bed 2. PHYSICAL EXAMINATION VITAL SIGNS: Temperature is 98, blood pressure is 103/60, respiratory rate of 16. HEENT: Examination of HEENT is unremarkable. NECK: Supple. LUNGS: Have decreased breath sounds. HEART: Normal S1 and S2. ABDOMEN: Soft, nontender. LABORATORY EXAMINATION: Reveals a white count of 5.8, hemoglobin of 12, platelets of 123. Coagulation is noted and a creatinine is 0.6. Microbiology reveals the blood cultures are negative. ASSESSMENT/PLAN: This is an 87-year-old, male with the lumbar compression fracture. No evidence of acute infection or sepsis. The patient with coronary artery disease and chronic congestive heart, diabetes mellitus, hypertension, benign prostatic hypertrophy, hepatitis C, currently off of antibiotics at risk for developing nosocomial infections. Review of orders confirms the patient to be off of antibiotics. Dickson Brewster MD cc:
[2018-01-16] MEDS: oxyCODONE 5 mg Immediate Release Tab PO PRN ×3 (02:03→17:04)
[2018-01-16] MEDS: Pantoprazole 40 mg EC Tab PO SCH ×2 (06:33→07:00)
[2018-01-16 09:04] VITALS: PULSE 61; TEMP 97.6; O2SAT 99
[2018-01-16] MEDS: Enoxaparin 30 mg Syringe SC SCH (09:19)
[2018-01-16] MEDS: Lidocaine 5% Patch TD SCH (09:22)
[2018-01-16] MEDS: Calcitonin 200 Int Units/Inh Nasal Spray (3.7 ml) NS SCH (09:23)
[2018-01-16] MEDS: Silver Sulfadiazine 1% Cream (25 gm) TP SCH (09:24)
[2018-01-16] MEDS: Insulin Reg-LOW-Coverage SC SCH ×3 (09:24→17:12)
[2018-01-16 09:32] VITALS: BP 121/65
--- NOTE | 2018-01-16 14:23 | PN ---
DATE: 01/15/2018 SUBJECTIVE: The patient is comfortable, sitting in the chair. OBJECTIVE: VITAL SIGNS: Temperature 97.8, heart rate 80, blood pressure 103/60, respirations 20, sat 99%.. HEAD AND NECK: Normal. No JVD. No thyromegaly. CHEST: Clear. CARDIAC: First sound and second sound normal. There is systolic murmur. ABDOMEN: Soft, nontender. EXTREMITIES: No edema. NEUROLOGIC: Normal except unsteady gait. LABORATORY DATA: Noted for sugar 280 and increased his insulin. IMPRESSION AND PLAN: 1. Generalized weakness, deconditioning, unstable gait. The patient will benefit from physical therapy, so avoid lying in bed and be more active that will help the back sore in the upper lumbar region. 2. Decubitus ulcer on upper lumbar and lower lumbosacral area. Continue local wound care, no need for intravenous antibiotics. The patient has no osteomyelitis. 3. The patient does have bipolar disorder, possible schizophrenia. Continue Abilify 15 mg p.o. daily and we will continue to follow up with the psychiatrist Dr. Alcaraz. 4. Peripheral neuropathy, chronic osteoarthritis. Continue oxycodone, continue Lyrica and Lidoderm patch on the lower back. 5. Diabetes insulin dependent, continue insulin 20 units subq at bedtime, in addition low insulin coverage. The patient also getting Glucotrol 5 mg daily. We will keep monitoring his sugar, try to avoid hypoglycemia especially at home by himself and we will continue to follow that. 6. Spine compression fracture. I will give calcium, vitamin D, and Miacalcin and physical therapy. It seems like chronic compression fracture. 7. Chronic glaucoma, iron deficiency anemia, prostate enlargement, congestive heart failure. Continue Lasix at 20 mg p.o. daily, continue Xalatan ophthalmic drops, continue Requip for his leg cramps and calcium and vitamin D. The patient also getting iron p.o. for his iron deficiency anemia. We will continue current therapy and we will talk to his daughter and we will see the plan of discharge for him. Ike Ngo MD [facility] # [id number]
--- NOTE | 2018-01-16 15:21 | PCM.PYCHPN ---
Psychiatric Progress Note - Psychiatric Progress Note Patient seen today, length of contact: 25 Patient Chief Complaint: anxiety Problems Identified/Issues Discussed: She has a chronic atypical disorder that is probably a schizoaffective disorder but which may have been now demented form features. His chronic psychiatric disorder has created family friction and alienation between he and at least some of his 4 children Medical Problems: Decubitus ulcer, osteomyelitis, peripheral neuropathy, diabetes mellitus, glaucoma, iron deficiency anemia, enlarged prostate gait disturbance, weakness Diagnostic Results: Laboratory Results - last 72 hr 01/13/18 01/13/18 01/14/18 16:14 21:25 06:48 POC Glucose (mg/dL) 200 H 255 H 100 01/14/18 01/14/18 01/14/18 11:41 16:06 21:37 POC Glucose (mg/dL) 187 H 232 H 284 H 01/15/18 01/15/18 01/15/18 07:09 11:40 16:05 POC Glucose (mg/dL) 170 H 163 H 263 H 01/15/18 01/16/18 01/16/18 22:30 06:43 11:08 POC Glucose (mg/dL) 198 H 115 H 155 H DSM 5 Symptoms Update: Patient is on her potentially manner pressured speech, some impulsivity, seems calmer and more interactive. He has underlying dependency needs and is difficult to terminate a conversation with him. Medication Change: No Medical Record Reviewed: Yes Mental Status Examination - Cognitive Function Orientation: Person, Place, Situation, Time Memory: Intact, Other Attention: WNL Concentration: WNL Fund of Knowledge: WNL Decription of patient's judgement and insights: Limited to his own perceptions which are often distorted - Mood Mood: Anxious - Affect Affect: Other - Speech Speech: Loud, Stammering, Pressured - Formal Thought Process Formal Thought Process: Other Psychotic Thoughts and Behaviors: None evident - Suicidal Ideation Suicidal Ideation: No - Homicidal Ideation Homicidal Ideation: No Goal/Treatment Plan - Goal/Treatment Plan Need for Continued Stay: Severe depression anxiety Progress Toward Problem(s) and Goals/Treatment Plan: Improving physically and mentally. He is appropriate for a TCU transfer when ready - Smoking Cessation Smoking Cessation Initiated: No Reason for not providing: Nonsmoker
== END 2018-01-16 17:18 | DRG 544 ==
LOC: ED 11:25 → ERH 13:41 → 5RNO 17:00
PROVIDERS: ADMIT Internal Medicine; ATTEND Internal Medicine
DX: M48.56XA Collapsed vertebra, not elsewhere classified, lumbar region, initial encounter for fracture (principal); L89.101 Pressure ulcer of unspecified part of back, stage 1; I25.10 Atherosclerotic heart disease of native coronary artery without angina pectoris; I11.0 Hypertensive heart disease with heart failure; I50.9 Heart failure, unspecified; F25.9 Schizoaffective disorder, unspecified; N40.0 Benign prostatic hyperplasia without lower urinary tract symptoms; F31.9 Bipolar disorder, unspecified; E11.42 Type 2 diabetes mellitus with diabetic polyneuropathy; H40.9 Unspecified glaucoma; B18.2 Chronic viral hepatitis C; M19.90 Unspecified osteoarthritis, unspecified site; E11.65 Type 2 diabetes mellitus with hyperglycemia; D50.9 Iron deficiency anemia, unspecified; K74.60 Unspecified cirrhosis of liver; F41.9 Anxiety disorder, unspecified; F03.90 Unspecified dementia, unspecified severity, without behavioral disturbance, psychotic disturbance, mood disturbance, and anxiety; E78.00 Pure hypercholesterolemia, unspecified; R25.2 Cramp and spasm; Z79.4 Long term (current) use of insulin; Z86.11 Personal history of tuberculosis

== ENCOUNTER 2018-01-16 17:18 | Inpatient (IN) | payer OTHER ==
[2018-01-16 17:41] VITALS: BMI 20.2
[2018-01-16] MEDS: Ergocalciferol 50,000 Intl Units Cap PO SCH (18:39)
[2018-01-16] MEDS: oxyCODONE 5 mg Immediate Release Tab PO PRN (19:39)
[2018-01-16] MEDS: Insulin Detemir 100 units/ml Vial (Levemir) SC SCH (21:27)
[2018-01-16] MEDS: Insulin Reg-LOW-Coverage SC SCH (21:29)
[2018-01-16] MEDS: Latanoprost 2.5 ml Opht Soln OU SCH (21:30)
[2018-01-16] MEDS ORDERED: Pneumococcal 23-Valent Vaccine IM ONE (23:29)
[2018-01-17] MEDS: Enoxaparin 30 mg Syringe SC SCH (06:18)
[2018-01-17] MEDS: Pantoprazole 40 mg EC Tab PO SCH (06:18)
[2018-01-17] MEDS: Insulin Reg-LOW-Coverage SC SCH ×4 (06:36→21:32)
[2018-01-17] MEDS: Calcitonin 200 Int Units/Inh Nasal Spray (3.7 ml) NS SCH (09:53)
[2018-01-17] MEDS: Lidocaine 5% Patch TD SCH (09:53)
[2018-01-17] MEDS: Silver Sulfadiazine 1% Cream (25 gm) TP SCH (09:53)
[2018-01-17] MEDS ORDERED: Silver Sulfadiazine 1% Cream (25 gm) TP SCH (10:00)
[2018-01-17] MEDS: oxyCODONE 5 mg Immediate Release Tab PO PRN ×3 (11:42→21:35)
--- NOTE | 2018-01-17 12:13 | CP.PCM.CON ---
History of Present Illness - History of Present Illness History of Present Illness: 87 year old male with PMH of CAD with chronic CHF, DM, HTN, BPH, history of hepatitis C, history of latent TB, schizophrenia, bipolar disorder was initially brought in to [facility] [place] because of back pain and was noted to have compression fractures in the lumbar vertebrae. He is being managed conservatively and is now transferred to [facility] for continued medical therapy and physical therapy. Infectious Diseases consult is requested to see if he needs antibiotics. Currently the patient has no fever or chills, no vomiting, no diarrhea, still with occasional back pain. Review of Systems - Review of Systems All systems: reviewed and no additional remarkable complaints except (as per HPI ) Past Patient History - Infectious Disease Hx of Infectious Diseases: None - Tetanus Immunizations Tetanus Immunization: Unknown - Past Medical History & Family History Past Medical History?: Yes - Past Social History Smoking Status: Never Smoked - CARDIAC Hx Cardiac Disorders: Yes Hx Hypercholesterolemia: Yes Hx Hypertension: Yes - PULMONARY Hx Tuberculosis: No - NEUROLOGICAL Hx Dementia: (? from previous chart) - HEENT Hx HEENT Problems: Yes Other/Comment: [place] - RENAL Hx Chronic Kidney Disease: No - ENDOCRINE/METABOLIC Hx Diabetes Mellitus Type 2: Yes - HEMATOLOGICAL/ONCOLOGICAL Hx Blood Disorders: No Hx Cancer: No - INTEGUMENTARY Hx Dermatological Problems: No - MUSCULOSKELETAL/RHEUMATOLOGICAL Hx Falls: Yes - GASTROINTESTINAL Hx Gastrointestinal Disorders: No - GENITOURINARY/GYNECOLOGICAL Hx Genitourinary Disorders: Yes (incontinent) Hx Reproductive Disorders: Yes (bph) - PSYCHIATRIC Hx Psychophysiologic Disorder: Yes Hx Anxiety: Yes Hx Depression: Yes Hx Schizophrenia: Yes Hx Substance Use: No - SURGICAL HISTORY Hx Coronary Stent: Yes - ANESTHESIA Hx Anesthesia: Yes Hx Anesthesia Reactions: No Hx Malignant Hyperthermia: No Meds Allergies/Adverse Reactions: Allergies Allergy/AdvReac Type Severity Reaction Status Date / Time No Known Allergies Allergy Verified 01/16/18 20:16 - Medications Medications: Current Medications Aripiprazole (Abilify) 15 mg PO DAILY MUNA PRN Reason: Protocol Ascorbic Acid (Vitamin C 500 Mg Tab) 250 mg PO DAILY MUNA PRN Reason: Protocol Calcitonin [place] (Miacalcin) 200 intlu NS DAILY MUNA PRN Reason: Protocol Calcium Carbonate (Caltrate) 600 mg PO DAILY MUNA PRN Reason: Protocol Clonidine HCl (Catapres) 0.1 mg PO Q6H PRN; Protocol PRN Reason: Other Docusate Sodium (Colace) 100 mg PO BID MUNA PRN Reason: Protocol Last Admin: 01/16/18 18:38 Dose: Not Given Enoxaparin Sodium (Lovenox) 30 mg SC 0600 MUNA PRN Reason: Protocol Last Admin: 01/17/18 06:18 Dose: 30 mg Ergocalciferol (Drisdol 50,000 Intl Units Cap) 1 cap PO Q7D MUNA PRN Reason: Protocol Last Admin: 01/16/18 18:39 Dose: Not Given Ferrous Sulfate (Feosol) 324 mg PO 0800,1600 MUNA PRN Reason: Protocol Furosemide (Lasix) 20 mg PO 0600 MUNA PRN Reason: Protocol Last Admin: 01/17/18 06:18 Dose: 20 mg Glipizide (Glucotrol) 5 mg PO 0630 MUNA PRN Reason: Protocol Last Admin: 01/17/18 06:18 Dose: 5 mg Insulin Detemir (Levemir) 20 unit SC HS MUNA PRN Reason: Protocol Last Admin: 01/16/18 21:27 Dose: 20 unit Insulin Human Regular (Humulin R Low) 0 units SC ACHS MUNA PRN Reason: Protocol Last Admin: 01/17/18 06:36 Dose: Not Given Latanoprost (Xalatan Opht) 0 ml OU HS MUNA PRN Reason: Protocol Last Admin: 01/16/18 21:30 Dose: 2.5 ml Lidocaine (Lidoderm) 1 ea TD DAILY MUNA PRN Reason: Protocol Lorazepam (Ativan) 0.5 mg PO Q4H PRN; Protocol PRN Reason: Agitation Last Admin: 01/16/18 19:38 Dose: 0.5 mg Oxycodone HCl (Oxycodone Immediate Release Tab) 5 mg PO Q6H PRN; Protocol PRN Reason: Pain, severe (8-10) Last Admin: 01/16/18 19:39 Dose: 5 mg Pantoprazole Sodium (Protonix Ec Tab) 40 mg PO 0600 MUNA PRN Reason: Protocol Last Admin: 01/17/18 06:18 Dose: 40 mg Pregabalin (Lyrica) 50 mg PO BID MUNA PRN Reason: Protocol Ropinirole HCl (Requip) 0.25 mg PO 0800,1800 MUNA PRN Reason: Protocol Last Admin: 01/16/18 18:40 Dose: Not Given Silver Sulfadiazine (Silvadene 1% 25 Gm) 0 gm TP DAILY MUNA PRN Reason: Protocol Tamsulosin HCl (Flomax) 0.4 mg PO 1800 MUNA PRN Reason: Protocol Last Admin: 01/16/18 18:39 Dose: Not Given Physical Exam - Constitutional Appears: Chronically Ill - Head Exam Head Exam: NORMAL INSPECTION - Respiratory Exam Respiratory Exam: Decreased Breath Sounds - Cardiovascular Exam Cardiovascular Exam: +S1, +S2 - GI/Abdominal Exam GI & Abdominal Exam: Soft. absent: Tenderness Results - Vital Signs Recent Vital Signs: Last Vital Signs Temp Pulse Resp BP 128/61 01/17/18 06:18 Pulse Ox - Labs Labs: Laboratory Results - last 24 hr 01/16/18 01/17/18 21:23 06:20 POC Glucose (mg/dL) 316 H 110 Assessment & Plan - Assessment and Plan (Free Text) Plan: Assessment lumbar compression fractures; no evidence of bacterial infection or sepsis CAD with chronic CHF DM HTN BPH history of hepatitis C history of latent TB schizophrenia bipolar disorder Plan continue to monitor off antibiotics since he is at risk for hospital-acquired infections
[2018-01-17] MEDS: Insulin Detemir 100 units/ml Vial (Levemir) SC SCH (21:32)
[2018-01-17] MEDS: Latanoprost 2.5 ml Opht Soln OU SCH (21:33)
[2018-01-18] MEDS: Enoxaparin 30 mg Syringe SC SCH (06:06)
[2018-01-18] MEDS: Pantoprazole 40 mg EC Tab PO SCH (06:07)
[2018-01-18] MEDS: oxyCODONE 5 mg Immediate Release Tab PO PRN (06:07)
[2018-01-18] MEDS: Insulin Reg-LOW-Coverage SC SCH ×4 (06:57→21:33)
[2018-01-18] MEDS: Calcitonin 200 Int Units/Inh Nasal Spray (3.7 ml) NS SCH (09:02)
[2018-01-18] MEDS: Lidocaine 5% Patch TD SCH (09:02)
[2018-01-18] MEDS: Silver Sulfadiazine 1% Cream (25 gm) TP SCH (09:03)
[2018-01-18] MEDS: Insulin Detemir 100 units/ml Vial (Levemir) SC SCH (21:34)
[2018-01-18] MEDS: Latanoprost 2.5 ml Opht Soln OU SCH (21:35)
[2018-01-19] MEDS: Enoxaparin 30 mg Syringe SC SCH (05:50)
[2018-01-19] MEDS: Pantoprazole 40 mg EC Tab PO SCH (05:51)
[2018-01-19] MEDS: Insulin Reg-LOW-Coverage SC SCH ×4 (06:37→22:49)
[2018-01-19] MEDS: Silver Sulfadiazine 1% Cream (25 gm) TP SCH (10:07)
[2018-01-19] MEDS: Calcitonin 200 Int Units/Inh Nasal Spray (3.7 ml) NS SCH (10:08)
[2018-01-19] MEDS: Lidocaine 5% Patch TD SCH (10:08)
--- NOTE | 2018-01-19 19:59 | PCM.PYCHPN ---
Psychiatric Progress Note - Psychiatric Progress Note Patient seen today, length of contact: 25 Patient Chief Complaint: Patient capable of mood lability perseverative thinking and speech Problems Identified/Issues Discussed: Patient sometimes difficult to control or interact with him because of his single mindedness, including perseveration, rapid speech and at times impulsive demanding this Medical Problems: Congestive heart failure, diabetes mellitus, hypertension, BPH, chronic hepatitis C, latent tuberculosis, compression fractures of the lumbar region Diagnostic Results: Laboratory Results - last 72 hr 01/16/18 01/17/18 01/17/18 21:23 06:20 11:37 POC Glucose (mg/dL) 316 H 110 197 H 01/17/18 01/17/18 01/18/18 16:33 21:23 05:23 POC Glucose (mg/dL) 183 H 248 H 169 H 01/18/18 01/18/18 01/18/18 11:21 17:49 21:33 POC Glucose (mg/dL) 83 146 H 271 H 01/19/18 01/19/18 05:44 12:00 POC Glucose (mg/dL) 144 H 114 H DSM 5 Symptoms Update: Patient is alert, seems calmer today. Perhaps is sedate, is less interactive. Did recognize me. Unusual that he did not issue any specific complaint. Medication Change: No Medical Record Reviewed: Yes Consults ordered or reviewed: Review the Goal/Treatment Plan - Goal/Treatment Plan Need for Continued Stay: Severe functional impairment Progress Toward Problem(s) and Goals/Treatment Plan: Patient now in transitional care unit which is an improvement in his general physical and psychiatric status
[2018-01-19] MEDS: Insulin Detemir 100 units/ml Vial (Levemir) SC SCH (22:30)
[2018-01-19] MEDS: Latanoprost 2.5 ml Opht Soln OU SCH (22:32)
--- NOTE | 2018-01-20 01:50 | PN ---
DATE: 01/18/2018 SUBJECTIVE: Patient is clinically stable, sitting in the chair, eating, no distress. No new complaint. He just wants to shave his chin and complaining about that; no other complaint really. Seems doing physical therapy. He has had physical therapy today and seems doing well. PHYSICAL EXAMINATION: VITAL SIGNS: On 01/18/2018, physical exam showed temperature 97.6, heart rate 82, blood pressure 107/61, respirations 18, saturation 95% on room air. HEAD AND NECK: Normal. No JVD. No thyromegaly. CHEST: Clear. Good air entry. CARDIAC: First sound and second sound normal. ABDOMEN: Soft and nontender. EXTREMITIES: No edema. NEUROLOGIC: He has unsteady gait. BACK AND SPINE: Showed decubitus ulcer covered with gauze. LABORATORY DATA: Noted for blood sugar of 146. IMPRESSION AND PLAN: 1. Gait disorder, generalized weakness. Continue physical therapy. 2. Chronic back pain due to chronic osteoarthritis, multiple compression fractures. Continue Miacalcin plus Percocet p.r.n. 3. Diabetes. Using insulin. Continue glipizide plus insulin, Levemir 20 units at bedtime. Patient seems doing well. Sugar is good. 4. Prostate enlargement, iron deficiency anemia, hypertension. Continue current medications. 5. Chronic schizoaffective disorder. Continue Abilify plus Ativan. Seems doing well. We will follow up clinically. Ike Ngo MD
--- NOTE | 2018-01-20 02:02 | PN ---
DATE: 01/19/2018 SUBJECTIVE: Patient is doing well. No new complaints. He is walking, seems standing by himself without any supports, moving from the bathroom. There is no problem, washing his face. He seems doing okay. No new complaints, getting physical therapy. PHYSICAL EXAMINATION VITAL SIGNS: Temperature 98.7, heart rate 78, blood pressure 115/67, respirations 18, saturation 100% on room air. HEAD AND NECK: Normal. No JVD. No thyromegaly. CHEST: Clear. Good air entry. CARDIAC: First sound and second sound normal. ABDOMEN: Soft, nontender. EXTREMITIES: No edema. NEUROLOGIC: Unsteady gait and has weakness. LABORATORY DATA: Blood sugar 114. IMPRESSION AND PLAN: 1. Generalized weakness, unsteady gait. Continue physical therapy. 2. Chronic back pain, chronic multiple compression fractures. No intervention needed. Continue Miacalcin plus Percocet. 3. Diabetes type 2, using insulin. Continue Levemir and glipizide, plus insulin coverage, sliding scale. 4. Chronic hepatitis C, chronic glaucoma, chronic anemia, chronic osteoarthritis, prostate enlargement. Continue current therapy. Stable conditions. Continue current medicines. 5. Chronic anxiety with schizoaffective disorder. Patient seems doing well with the Abilify plus Ativan, seen by psychiatrist Dr. Alcaraz. 6. sacral decubitus. Continue local wound care. Patient seems doing well. Wound care every day and he seems doing well. Ike Ngo MD
--- NOTE | 2018-01-20 04:36 | PN ---
DATE: 01/19/2018 The patient came to TCU on 10/19/2017. Reason for admission is gait disorder and generalized weakness. HISTORY OF PRESENT ILLNESS: A 87-year-old male who was recently admitted to the medical floor because of decubitus ulcer in his spine, pressure ulcer. The patient had a CT, which was negative for osteomyelitis, seen by ID consult and by surgical team and wound care. The patient was cleared for local wound care only and was transferred to TCU for continuation of his unsteady gait, has been recommended by physical therapy to continue gait training, transfer and more physical therapy before discharging back home. Denied any chest pain, denied any shortness of breath, denied any nausea or vomiting, no edema, and no other complaint. PAST MEDICAL HISTORY: As mentioned here, he does have chronic hepatitis C. He does have schizoaffective disorder. He does have psychosis, diabetes type II, hypertension, and chronic valvular disease. The patient also has chronic osteoarthritis, chronic back pain due to osteoarthritis, and sometimes gets chronic constipation. ALLERGIES: NO KNOWN ALLERGIES. SOCIAL HISTORY: He sometimes lives with his daughter, very supportive daughter. Sometimes he lives in [place] with some [place] visiting nurse. No smoking, no drinking. MEDICATIONS: Medication-benites, the patient has been taking Abilify 15 mg p.o. daily. He is taking also Caltrate. He is taking Colace, vitamin D, iron pills twice a day, Flomax 0.4, Glucotrol 5 mg p.o. every day, Lasix 20 p.o. daily, Levemir 20 units daily, Lovenox 30 subcutaneous daily, Lidoderm patch daily, Lyrica 50 b.i.d., Miacalcin was given one spray each nostril alternating nostril daily, oxycodone 5 mg every 6 hours p.r.n. for his back pain, Requip 0.25 mg b.i.d., Protonix 40 mg at bedtime, Silvadene cream to the topical area to the local wound care, vitamin C, Xalatan for glaucoma once a day in each eye, and Tylenol p.r.n. REVIEW OF SYSTEM: As in the present illness. PHYSICAL EXAMINATION GENERAL: The patient seems alert and awake. VITAL SIGNS: Temperature 97.7, heart rate 86, blood pressure 144/71, respirations 20, saturation 98%. HEENT: Head normal. NECK: Normal. No JVD. No thyromegaly. CHEST: Clear. Good air entry. CARDIAC: First sound and second sound normal. ABDOMEN: Soft and nontender. EXTREMITIES: No edema. BACK: There is a large midline upper lumbar area decubitus, which is covered with , Band-Aid, 4 x 4. At the sacral bone, there is a small decubitus ulcer. IMPRESSION AND PLAN: 1. Decubitus ulcers in the upper lumbar and sacral area, continue local wound care. 2. Chronic back pain, continue oxycodone. 3. Diabetes type II, continue oral hypoglycemic and insulin coverage plus Levemir. 4. Chronic schizoaffective disorder, seen by Psychiatry Dr. Alcaraz. Continue Abilify plus Ativan 0.5 mg p.r.n. 5. The patient also has prostate enlargement, glaucoma, history of cardiac dysfunction, leg edema. Continue Lasix, Xalatan, Requip, and we will follow up clinically. 6. Multiple compression fracture on spine, continue Miacalcin plus Percocet. 7. Gait disorders due to combination of the above factors. Continue gait training, use walker. Patient seems doing well. Ike Ngo MD
[2018-01-20] MEDS: Pantoprazole 40 mg EC Tab PO SCH (06:29)
[2018-01-20] MEDS: Enoxaparin 30 mg Syringe SC SCH (06:31)
[2018-01-20] MEDS: Insulin Reg-LOW-Coverage SC SCH ×4 (07:20→21:37)
[2018-01-20] MEDS: Lidocaine 5% Patch TD SCH (09:56)
[2018-01-20] MEDS: Silver Sulfadiazine 1% Cream (25 gm) TP SCH (09:57)
[2018-01-20] MEDS: Calcitonin 200 Int Units/Inh Nasal Spray (3.7 ml) NS SCH (09:57)
[2018-01-20] MEDS: oxyCODONE 5 mg Immediate Release Tab PO PRN (10:03)
--- NOTE | 2018-01-20 13:04 | CP.PCM.PN ---
Subjective - Date & Time of Evaluation Date of Evaluation: 01/20/18 Time of Evaluation: 11:35 - Subjective Subjective: No fevers, not in distress. Objective - Vital Signs/Intake and Output Vital Signs (last 24 hours): Temp Pulse Resp BP Pulse Ox 97.9 F 69 18 119/60 98 01/20/18 06:00 01/20/18 06:00 01/20/18 06:00 01/20/18 06:30 01/20/18 06:00 - Medications Medications: Current Medications Acetaminophen (Tylenol 325mg Tab) 650 mg PO Q8H PRN PRN Reason: Headache Last Admin: 01/19/18 13:59 Dose: 650 mg Aripiprazole (Abilify) 15 mg PO DAILY MUNA PRN Reason: Protocol Last Admin: 01/19/18 10:09 Dose: 15 mg Ascorbic Acid (Vitamin C 500 Mg Tab) 250 mg PO DAILY MUNA PRN Reason: Protocol Last Admin: 01/19/18 10:10 Dose: 250 mg Calcitonin [place] (Miacalcin) 200 intlu NS DAILY MUNA PRN Reason: Protocol Last Admin: 01/19/18 10:08 Dose: 1 spr Calcium Carbonate (Caltrate) 600 mg PO DAILY MUNA PRN Reason: Protocol Last Admin: 01/19/18 10:33 Dose: 600 mg Clonidine HCl (Catapres) 0.1 mg PO Q6H PRN; Protocol PRN Reason: Other Docusate Sodium (Colace) 100 mg PO BID MUNA PRN Reason: Protocol Last Admin: 01/19/18 17:34 Dose: 100 mg Enoxaparin Sodium (Lovenox) 30 mg SC 0600 MUNA PRN Reason: Protocol Last Admin: 01/20/18 06:31 Dose: 30 mg Ergocalciferol (Drisdol 50,000 Intl Units Cap) 1 cap PO Q7D MUNA PRN Reason: Protocol Last Admin: 01/16/18 18:39 Dose: Not Given Ferrous Sulfate (Feosol) 324 mg PO 0800,1600 MUNA PRN Reason: Protocol Last Admin: 01/20/18 07:41 Dose: 324 mg Furosemide (Lasix) 20 mg PO 0600 MUNA PRN Reason: Protocol Last Admin: 01/20/18 06:30 Dose: 20 mg Glipizide (Glucotrol) 5 mg PO 0630 MUNA PRN Reason: Protocol Last Admin: 01/20/18 06:30 Dose: 5 mg Insulin Detemir (Levemir) 20 unit SC HS MUNA PRN Reason: Protocol Last Admin: 01/19/18 22:30 Dose: 20 unit Insulin Human Regular (Humulin R Low) 0 units SC ACHS MUNA PRN Reason: Protocol Last Admin: 01/20/18 07:20 Dose: 3 units Latanoprost (Xalatan Opht) 0 ml OU HS MUNA PRN Reason: Protocol Last Admin: 01/19/18 22:32 Dose: 2.5 ml Lidocaine (Lidoderm) 1 ea TD DAILY MUNA PRN Reason: Protocol Last Admin: 01/19/18 10:08 Dose: 1 ea Lorazepam (Ativan) 0.5 mg PO Q4H PRN; Protocol PRN Reason: Agitation Last Admin: 01/17/18 21:34 Dose: 0.5 mg Oxycodone HCl (Oxycodone Immediate Release Tab) 5 mg PO Q6H PRN; Protocol PRN Reason: Pain, severe (8-10) Last Admin: 01/18/18 06:07 Dose: 5 mg Pantoprazole Sodium (Protonix Ec Tab) 40 mg PO 0600 MUNA PRN Reason: Protocol Last Admin: 01/20/18 06:29 Dose: 40 mg Pregabalin (Lyrica) 50 mg PO BID MUNA PRN Reason: Protocol Last Admin: 01/19/18 17:39 Dose: 50 mg Ropinirole HCl (Requip) 0.25 mg PO 0800,1800 MUNA PRN Reason: Protocol Last Admin: 01/20/18 07:42 Dose: 0.25 mg Silver Sulfadiazine (Silvadene 1% 25 Gm) 0 gm TP DAILY MUNA PRN Reason: Protocol Last Admin: 01/19/18 10:07 Dose: 25 gm Tamsulosin HCl (Flomax) 0.4 mg PO 1800 MUNA PRN Reason: Protocol Last Admin: 01/19/18 17:35 Dose: 0.4 mg - Constitutional Appears: Non-toxic, Chronically Ill - Head Exam Head Exam: NORMAL INSPECTION - Respiratory Exam Respiratory Exam: Decreased Breath Sounds - Cardiovascular Exam Cardiovascular Exam: +S1, +S2 - GI/Abdominal Exam GI & Abdominal Exam: Soft. absent: Tenderness Assessment and Plan - Assessment and Plan (Free Text) Plan: Assessment lumbar compression fractures; no evidence of bacterial infection or sepsis CAD with chronic CHF DM HTN BPH history of hepatitis C history of latent TB schizophrenia bipolar disorder Plan continue to monitor off antibiotics since he is at risk for healthcare- associated infections
[2018-01-20] MEDS: Insulin Detemir 100 units/ml Vial (Levemir) SC SCH (21:37)
[2018-01-20] MEDS: Latanoprost 2.5 ml Opht Soln OU SCH (21:38)
[2018-01-21] MEDS: Pantoprazole 40 mg EC Tab PO SCH (05:43)
[2018-01-21] MEDS: Enoxaparin 30 mg Syringe SC SCH (05:44)
[2018-01-21] MEDS: Insulin Reg-LOW-Coverage SC SCH ×4 (06:53→21:53)
[2018-01-21] MEDS: Lidocaine 5% Patch TD SCH (09:44)
[2018-01-21] MEDS: Calcitonin 200 Int Units/Inh Nasal Spray (3.7 ml) NS SCH (09:45)
[2018-01-21] MEDS: Silver Sulfadiazine 1% Cream (25 gm) TP SCH (09:46)
--- NOTE | 2018-01-21 16:57 | CP.PCM.PN ---
Subjective - Date & Time of Evaluation Date of Evaluation: 01/21/18 Time of Evaluation: 09:20 - Subjective Subjective: Afebrile, not in distress. Objective - Vital Signs/Intake and Output Vital Signs (last 24 hours): Temp Pulse Resp BP Pulse Ox 97.9 F 68 18 116/54 L 97 01/21/18 05:55 01/21/18 05:55 01/21/18 05:55 01/21/18 05:55 01/21/18 05:55 - Medications Medications: Current Medications Acetaminophen (Tylenol 325mg Tab) 650 mg PO Q8H PRN PRN Reason: Headache Last Admin: 01/21/18 01:05 Dose: 650 mg Aripiprazole (Abilify) 15 mg PO DAILY MUNA PRN Reason: Protocol Last Admin: 01/20/18 09:54 Dose: 15 mg Ascorbic Acid (Vitamin C 500 Mg Tab) 250 mg PO DAILY MUNA PRN Reason: Protocol Last Admin: 01/20/18 09:58 Dose: 250 mg Calcitonin Lyman (Miacalcin) 200 intlu NS DAILY MUNA PRN Reason: Protocol Last Admin: 01/20/18 09:57 Dose: 1 spr Calcium Carbonate (Caltrate) 600 mg PO DAILY MUNA PRN Reason: Protocol Last Admin: 01/21/18 07:57 Dose: 600 mg Clonidine HCl (Catapres) 0.1 mg PO Q6H PRN; Protocol PRN Reason: Other Docusate Sodium (Colace) 100 mg PO BID MUNA PRN Reason: Protocol Last Admin: 01/20/18 17:40 Dose: 100 mg Enoxaparin Sodium (Lovenox) 30 mg SC 0600 MUNA PRN Reason: Protocol Last Admin: 01/21/18 05:44 Dose: 30 mg Ergocalciferol (Drisdol 50,000 Intl Units Cap) 1 cap PO Q7D MUNA PRN Reason: Protocol Last Admin: 01/16/18 18:39 Dose: Not Given Ferrous Sulfate (Feosol) 324 mg PO 0800,1800 MUNA PRN Reason: Protocol Last Admin: 01/21/18 07:58 Dose: 324 mg Furosemide (Lasix) 20 mg PO 0600 MUNA PRN Reason: Protocol Last Admin: 01/21/18 05:43 Dose: 20 mg Glipizide (Glucotrol) 5 mg PO 0630 MUNA PRN Reason: Protocol Last Admin: 01/21/18 05:43 Dose: 5 mg Insulin Detemir (Levemir) 20 unit SC HS MUNA PRN Reason: Protocol Last Admin: 01/20/18 21:37 Dose: 20 unit Insulin Human Regular (Humulin R Low) 0 units SC ACHS MUNA PRN Reason: Protocol Last Admin: 01/21/18 06:53 Dose: 1 units Latanoprost (Xalatan Opht) 0 ml OU HS MUNA PRN Reason: Protocol Last Admin: 01/20/18 21:38 Dose: 2.5 ml Lidocaine (Lidoderm) 1 ea TD DAILY MUNA PRN Reason: Protocol Last Admin: 01/20/18 09:56 Dose: 1 ea Lorazepam (Ativan) 0.5 mg PO Q4H PRN; Protocol PRN Reason: Agitation Last Admin: 01/17/18 21:34 Dose: 0.5 mg Pantoprazole Sodium (Protonix Ec Tab) 40 mg PO 0600 MUNA PRN Reason: Protocol Last Admin: 01/21/18 05:43 Dose: 40 mg Pregabalin (Lyrica) 50 mg PO BID MUNA PRN Reason: Protocol Last Admin: 01/20/18 17:47 Dose: 50 mg Ropinirole HCl (Requip) 0.25 mg PO 0800,1800 MUNA PRN Reason: Protocol Last Admin: 01/21/18 07:58 Dose: 0.25 mg Silver Sulfadiazine (Silvadene 1% 25 Gm) 0 gm TP DAILY MUNA PRN Reason: Protocol Last Admin: 01/20/18 09:57 Dose: 25 gm Tamsulosin HCl (Flomax) 0.4 mg PO 1800 MUAN PRN Reason: Protocol Last Admin: 01/20/18 17:41 Dose: 0.4 mg - Constitutional Appears: Non-toxic, Chronically Ill - Head Exam Head Exam: NORMAL INSPECTION - Respiratory Exam Respiratory Exam: Decreased Breath Sounds - Cardiovascular Exam Cardiovascular Exam: +S1, +S2 - GI/Abdominal Exam GI & Abdominal Exam: Soft. absent: Tenderness Assessment and Plan - Assessment and Plan (Free Text) Plan: Assessment lumbar compression fractures; no evidence of bacterial infection or sepsis CAD with chronic CHF DM HTN BPH history of hepatitis C history of latent TB schizophrenia bipolar disorder Plan continue to monitor off antibiotics since he is at risk for nosocomial infections
--- NOTE | 2018-01-21 18:11 | PCM.PYCHPN ---
Psychiatric Progress Note - Psychiatric Progress Note Patient seen today, length of contact: 25 Patient Chief Complaint: Patient capable of mood lability perseverative thinking and speech Problems Identified/Issues Discussed: Patient sometimes difficult to control or interact with him because of his single mindedness, including perseveration, rapid speech and at times impulsive demanding this Medical Problems: Congestive heart failure, diabetes mellitus, hypertension, BPH, chronic hepatitis C, latent tuberculosis, compression fractures of the lumbar region Diagnostic Results: Laboratory Results - last 72 hr 01/16/18 01/17/18 01/17/18 21:23 06:20 11:37 POC Glucose (mg/dL) 316 H 110 197 H 01/17/18 01/17/18 01/18/18 16:33 21:23 05:23 POC Glucose (mg/dL) 183 H 248 H 169 H 01/18/18 01/18/18 01/18/18 11:21 17:49 21:33 POC Glucose (mg/dL) 83 146 H 271 H 01/19/18 01/19/18 05:44 12:00 POC Glucose (mg/dL) 144 H 114 H DSM 5 Symptoms Update: Appears comfortable but peripatetic. Easily provoked. Case reviewed with nursing. Medication Change: No Medical Record Reviewed: Yes Mental Status Examination - Cognitive Function Orientation: Place, Situation Memory: Impaired Attention: WNL Concentration: Poor Association: WNL Fund of Knowledge: WNL Decription of patient's judgement and insights: Impaired - Mood Mood: Neutral - Affect Affect: Constricted - Speech Speech: Loud, Stammering - Formal Thought Process Formal Thought Process: Other Psychotic Thoughts and Behaviors: None evident - Suicidal Ideation Suicidal Ideation: No - Homicidal Ideation Homicidal Ideation: No Goal/Treatment Plan - Goal/Treatment Plan Need for Continued Stay: Severe functional impairment Progress Toward Problem(s) and Goals/Treatment Plan: Patient now in transitional care unit which is an improvement in his general physical and psychiatric status
[2018-01-21] MEDS: Insulin Detemir 100 units/ml Vial (Levemir) SC SCH (21:53)
[2018-01-21] MEDS: Latanoprost 2.5 ml Opht Soln OU SCH (21:54)
[2018-01-22] MEDS: Pantoprazole 40 mg EC Tab PO SCH (05:54)
[2018-01-22] MEDS: Insulin Reg-LOW-Coverage SC SCH ×4 (07:01→21:30)
[2018-01-22] MEDS: Lidocaine 5% Patch TD SCH (10:06)
[2018-01-22] MEDS: Calcitonin 200 Int Units/Inh Nasal Spray (3.7 ml) NS SCH (10:07)
[2018-01-22] MEDS: Enoxaparin 30 mg Syringe SC SCH (10:07)
[2018-01-22] MEDS: Silver Sulfadiazine 1% Cream (25 gm) TP SCH (10:08)
--- NOTE | 2018-01-22 15:02 | PN ---
DATE: 01/20/2018 SUBJECTIVE: Patient is comfortable, in no distress, afebrile. He wants to go home with Carlyn, his daughter, that he needs some access to the phone and go outside and expressed that and discussed with the nurse to get in touch with the Social Service to be able to help the patient feel not isolated. PHYSICAL EXAMINATION: VITAL SIGNS: On 01/20, is as follows: Temperature 97.7, heart rate 80, blood pressure 121/57, respirations 20, and saturating 100%. HEAD AND NECK: Normal. No JVD. No thyromegaly. CHEST: Clear. Good air entry. CARDIAC: First sound and second sound normal. ABDOMEN: Soft and nontender. EXTREMITIES: Mild edema. NEUROLOGIC: Patient has gait instability and general weakness, but otherwise nonfocal. SKIN: He has upper lumbar area decubitus, has been managed by Optifoam bandages on his back plus local medications. Wound care staff has been taking care of that. He also has a small sacral decubitus, seems doing well. LABORATORY DATA: His blood sugar runs in the 200s. IMPRESSION AND PLAN: 1. Generalized weakness and gait instability. Continue physical therapy. 2. Sacral decubitus. Continue local wound care. 3. Multiple spine compression fracture. Continue Miacalcin plus Percocet for pain. 4. Diabetes type 2. Continue Glucotrol 5 mg plus insulin coverage. 5. Prostate enlargement. Continue Flomax. 6. Hypertension. We will give Catapres 0.1 every 6 hours and we will continue the rest of the medications, which include for his underlying schizoaffective disorder. He continues Abilify plus Ativan. Seems to be doing well. 7. Peripheral neuropathy. Continue Lyrica. Continue ReQuip 0.25 mg b.i.d., Lyrica 50 mg b.i.d. Continue local wound medicines, Silvadene 1% cream, Tylenol p.r.n. Continue gastrointestinal and deep vein thrombosis prophylaxis. Patient also has been getting Levemir insulin 20 units every night. 8. For leg edema, we will continue Lasix 20 mg once a day and we will repeat his labs. Continue physical therapy. Ike Ngo MD
--- NOTE | 2018-01-22 21:01 | PCM.PYCHPN ---
Psychiatric Progress Note - Psychiatric Progress Note Patient seen today, length of contact: 25 Patient Chief Complaint: Patient capable of mood lability perseverative thinking and speech Problems Identified/Issues Discussed: Patient sometimes difficult to control or interact with him because of his single mindedness, including perseveration, rapid speech and at times impulsive demanding this On 53 discussed case with nursing and with social work. I am assured that patient has a director of home economics at all times. His daughter appears to be living with him at least part of the time. Issues of family dynamics were discussed with social work. My sense is that so long as the patient has sufficient home services which is around the clock within services and he is okay to go home. He probably would be better off in an assisted living or retirement environment. Medical Problems: Congestive heart failure, diabetes mellitus, hypertension, BPH, chronic hepatitis C, latent tuberculosis, compression fractures of the lumbar region Diagnostic Results: Laboratory Results - last 72 hr 01/16/18 01/17/18 01/17/18 21:23 06:20 11:37 POC Glucose (mg/dL) 316 H 110 197 H 01/17/18 01/17/18 01/18/18 16:33 21:23 05:23 POC Glucose (mg/dL) 183 H 248 H 169 H 01/18/18 01/18/18 01/18/18 11:21 17:49 21:33 POC Glucose (mg/dL) 83 146 H 271 H 01/19/18 01/19/18 05:44 12:00 POC Glucose (mg/dL) 144 H 114 H DSM 5 Symptoms Update: Patient remains tranquil until spoken to. At that time he over elaborates, has a number of somatic complaints, has poor boundary definitions such that he goes on and on. Insisted and showing me his back wound him etc. etc. The general pattern of interacting with Mr. Santana is the need to abruptly and an interaction with them because he himself generally does not stop. Medication Change: No Medical Record Reviewed: Yes Mental Status Examination - Cognitive Function Orientation: Place, Situation Memory: Impaired Attention: WNL Concentration: Poor Association: WNL Fund of Knowledge: WNL Decription of patient's judgement and insights: Impaired - Mood Mood: Neutral - Affect Affect: Constricted - Speech Speech: Loud, Stammering - Formal Thought Process Formal Thought Process: Other Psychotic Thoughts and Behaviors: None evident - Suicidal Ideation Suicidal Ideation: No - Homicidal Ideation Homicidal Ideation: No Goal/Treatment Plan - Goal/Treatment Plan Need for Continued Stay: Severe functional impairment Progress Toward Problem(s) and Goals/Treatment Plan: Patient now in transitional care unit which is an improvement in his general physical and psychiatric status Case reviewed with social service manager regard to concerns of care at home. Patient remains communicatively impaired.
[2018-01-22] MEDS: Latanoprost 2.5 ml Opht Soln OU SCH (21:31)
[2018-01-22] MEDS: Insulin Detemir 100 units/ml Vial (Levemir) SC SCH (22:15)
--- NOTE | 2018-01-22 23:06 | PN ---
DATE: 01/22/2018 SUBJECTIVE: The patient is in bed, in no acute distress, nontoxic. PHYSICAL EXAMINATION: VITAL SIGNS: Temperature is 98, blood pressure is 120/70, respiratory rate of 18, heart rate of 63. HEENT: Examination of HEENT is unremarkable. NECK: Supple. LUNGS: Have decreased breath sounds. HEART: Normal S1 and S2. ABDOMEN: Soft, nontender. LABORATORY EXAMINATION: Noted. ASSESSMENT AND PLAN: This is an 87-year-old male who was seen earlier today in room 319 with a lumbar compression fracture. No evidence of bacterial infection or sepsis, coronary artery disease with chronic congestive heart failure, diabetes mellitus, hypertension, BPH, history of hepatitis C, history of latent tuberculosis, schizophrenia, bipolar, currently off of antibiotics and afebrile. We will follow with you. Dickson Brewster MD
[2018-01-23] MEDS: Pantoprazole 40 mg EC Tab PO SCH (05:54)
[2018-01-23] MEDS: Insulin Reg-LOW-Coverage SC SCH ×4 (06:32→21:55)
[2018-01-23] MEDS: Enoxaparin 30 mg Syringe SC SCH (09:26)
[2018-01-23] MEDS: Lidocaine 5% Patch TD SCH (09:30)
[2018-01-23] MEDS: Calcitonin 200 Int Units/Inh Nasal Spray (3.7 ml) NS SCH (09:31)
[2018-01-23] MEDS: Silver Sulfadiazine 1% Cream (25 gm) TP SCH (09:40)
--- NOTE | 2018-01-23 11:14 | PN ---
DATE: 01/23/2018 SUBJECTIVE: The patient is in bed, in no acute distress, nontoxic. PHYSICAL EXAMINATION VITAL SIGNS: Temperature is 98, blood pressure is 128/70, respiratory rate of 18, heart rate of 80. HEENT: Unremarkable. NECK: Supple. LUNGS: Have decreased breath sounds. HEART: Normal S1 and S2. ABDOMEN: Soft, nontender. LABORATORY DATA: Laboratory examination is noted. ASSESSMENT AND PLAN: This is an 87-year-old male who was seen earlier today with a lumbar compression fracture, no evidence of bacterial infection or sepsis. The patient was seen in 319. The patient with a history of chronic congestive heart failure, diabetes mellitus, hypertension, benign prostatic hypertrophy, history of hepatitis C, latent tuberculosis, schizophrenia, bipolar, currently off of antibiotics, afebrile; however, at risk for developing nosocomial infections. Dickson Brewster MD
--- NOTE | 2018-01-23 12:13 | PN ---
DATE: 01/22/2018 SUBJECTIVE: The patient is an 87-year-old male. The patient is comfortable, in no distress. Has bedsores, he is doing better, concerned about his daughter, Lucina and concerned about the situation at her house. Otherwise, physically no complaints, seems more stable and no distress. No agitation. PHYSICAL EXAMINATION: VITAL SIGNS: Shows temperature 98.7, heart rate 80, blood pressure 128/71, respirations 18, sat 96%. HEAD AND NECK: Normal. No JVD. No thyromegaly. CHEST: Clear, good air entry. CARDIAC: First sound and second sound normal. There is a systolic murmur, which is chronic. ABDOMEN: Soft, nontender. EXTREMITIES: Mild edema, bilateral. NEUROLOGIC: Nonfocal. He is alert and oriented to the place and to the time. LABORATORY STUDIES: Blood sugar noted 133, 146, 200 range sometimes; otherwise, is stable. IMPRESSION: 1. Sacral decubitus of the upper lumbar area. Continue local wound care. Seems doing well. No evidence of osteomyelitis. 2. Chronic back pain, multiple compression fractures. The patient is getting Miacalcin and Percocet p.r.n. 3. Diabetes type 2. Continue insulin, continue oral hypoglycemic dose, seems doing well, blood sugar 140s, maximum go 200. 4. Hypertension, stable. Continue Catapres 0.1 mg b.i.d. 5. Psychosis, schizoaffective disorder. Continue Abilify 50 mg at night and Ativan 0.5 mg every 4 hours p.r.n. 6. Prostate enlargement. Seems doing okay with Flomax. PLAN: Continue current medications for his chronic back pain in addition to Lyrica and ReQuip for his leg cramps and we will continue Physical Therapy for his gait disorder and general weakness. ACTIVE MEDICATIONS: Abilify 15 mg at bedtime, Ativan 0.5 mg every 4 hours p.r.n.; calcium 600 b.i.d.; Catapres 0.1 mg every 6 hours p.r.n.; Colace 100 b.i.d.; vitamin D once every week 50,000; iron pills 1 twice a day; Flomax 0.4 mg once a day; Glucotrol 5 mg once a day, insulin coverage low algorithm; Lasix 20 mg p.o. daily; Levemir 20 units subcutaneous daily; Lidoderm patch to the back area plus the Optifoam for the sacral wound with Silvadene, seems doing okay, Lovenox 30 mg subcutaneous daily, Lyrica 50 mg b.i.d., Miacalcin 200 units in alternating nostril, Protonix 40 mg once a day, ReQuip 0.25 mg b.i.d., Silvadene cream, Tylenol, vitamin C and Xalatan for his glaucoma 1 drop each eye once a day. Continue current therapy. Continue physical therapy. Ike Ngo MD
--- NOTE | 2018-01-23 16:00 | PCM.PYCHPN ---
Psychiatric Progress Note - Psychiatric Progress Note Patient seen today, length of contact: 25 Patient Chief Complaint: Patient capable of mood lability perseverative thinking and speech Problems Identified/Issues Discussed: Patient sometimes difficult to control or interact with him because of his single mindedness, including perseveration, rapid speech and at times impulsive demanding this On 53 discussed case with nursing and with social work. I am assured that patient has a day care home provider at all times. His daughter appears to be living with him at least part of the time. Issues of family dynamics were discussed with social work. My sense is that so long as the patient has sufficient home services which is around the clock within services and he is okay to go home. He probably would be better off in an assisted living or [facility] environment. Medical Problems: Congestive heart failure, diabetes mellitus, hypertension, BPH, chronic hepatitis C, latent tuberculosis, compression fractures of the lumbar region Diagnostic Results: Laboratory Results - last 72 hr 01/16/18 01/17/18 01/17/18 21:23 06:20 11:37 POC Glucose (mg/dL) 316 H 110 197 H 01/17/18 01/17/18 01/18/18 16:33 21:23 05:23 POC Glucose (mg/dL) 183 H 248 H 169 H 01/18/18 01/18/18 01/18/18 11:21 17:49 21:33 POC Glucose (mg/dL) 83 146 H 271 H 01/19/18 01/19/18 05:44 12:00 POC Glucose (mg/dL) 144 H 114 H DSM 5 Symptoms Update: relatively calm. However when spoken to patient tends to go triatribe with more pressured speaking Medication Change: No Medical Record Reviewed: Yes Mental Status Examination - Cognitive Function Orientation: Place, Situation Memory: Impaired Attention: WNL Concentration: Poor Association: WNL Fund of Knowledge: WNL Decription of patient's judgement and insights: Impaired - Mood Mood: Neutral - Affect Affect: Constricted - Speech Speech: Loud, Stammering - Formal Thought Process Formal Thought Process: Other Psychotic Thoughts and Behaviors: None evident - Suicidal Ideation Suicidal Ideation: No - Homicidal Ideation Homicidal Ideation: No Goal/Treatment Plan - Goal/Treatment Plan Need for Continued Stay: Severe functional impairment Progress Toward Problem(s) and Goals/Treatment Plan: Patient now in transitional care unit which is an improvement in his general physical and psychiatric status Case reviewed with social science instructor regard to concerns of care at home. Patient remains communicatively impaired. On January 23 case discussed with social work. Home services being arranged. Patient seems to have adequate home care being planned for his pending discharge. Senior daycare attendance also being looked into.
[2018-01-23] MEDS: Ergocalciferol 50,000 Intl Units Cap PO SCH (17:29)
[2018-01-23] MEDS: Latanoprost 2.5 ml Opht Soln OU SCH (21:05)
[2018-01-23] MEDS: Insulin Detemir 100 units/ml Vial (Levemir) SC SCH (21:56)
[2018-01-24] MEDS: Pantoprazole 40 mg EC Tab PO SCH (05:48)
[2018-01-24] MEDS: Insulin Reg-LOW-Coverage SC SCH ×4 (06:51→21:32)
[2018-01-24] MEDS: Lidocaine 5% Patch TD SCH (09:14)
[2018-01-24] MEDS: Enoxaparin 30 mg Syringe SC SCH (09:15)
[2018-01-24] MEDS: Calcitonin 200 Int Units/Inh Nasal Spray (3.7 ml) NS SCH (10:28)
[2018-01-24] MEDS: Silver Sulfadiazine 1% Cream (25 gm) TP SCH (12:29)
--- NOTE | 2018-01-24 13:30 | PN ---
DATE: 01/24/2018 SUBJECTIVE: The patient is in bed, in no acute distress. PHYSICAL EXAMINATION: VITAL SIGNS: Temperature is 98, blood pressure is 120/60, respiratory rate of 18, heart rate of 85. HEENT: Examination of HEENT is unremarkable. NECK: Supple. LUNGS: Have decreased breath sounds. HEART: Normal S1 and S2. ABDOMEN: Soft. LABORATORY DATA: Laboratory examination is reviewed. The patient's orders are reviewed. ASSESSMENT AND PLAN: This is an 87-year-old male, who was seen earlier today, history of lumbar compression fracture. No evidence of bacterial infection or sepsis. The patient with chronic congestive heart failure, diabetes, hypertension, benign prostatic hypertrophy, history of hepatitis C, latent tuberculosis, schizophrenia, bipolar and high risk for developing nosocomial infections. Dickson Brewster MD
[2018-01-24] MEDS: Latanoprost 2.5 ml Opht Soln OU SCH (21:10)
[2018-01-24] MEDS: Insulin Detemir 100 units/ml Vial (Levemir) SC SCH (21:33)
[2018-01-25] MEDS: Pantoprazole 40 mg EC Tab PO SCH (05:51)
[2018-01-25] MEDS: Insulin Reg-LOW-Coverage SC SCH ×4 (07:29→21:15)
--- NOTE | 2018-01-25 09:35 | PN ---
DATE: 01/25/2018 SUBJECTIVE: The patient is in bed, in no acute distress, nontoxic. PHYSICAL EXAMINATION: VITAL SIGNS: Temperature is 98, blood pressure is 140/70, respiratory rate of 18. HEENT: Examination of HEENT is unremarkable. NECK: Supple. LUNGS: Have decreased breath sounds. HEART: Normal S1, S2. ABDOMEN: Soft, nontender. LABORATORY DATA: Laboratory examination reviewed. ASSESSMENT AND PLAN: This is an 87-year-old man, who was seen earlier in room 319 with a history of lumbar compression fracture with no evidence of bacterial infection or sepsis and the patient with chronic congestive heart failure, diabetes, hypertension, benign prostatic hypertrophy, history of hepatitis C and latent tuberculosis, schizophrenia, bipolar. Review of orders reveals the patient to be off of antibiotics. The patient is at risk for developing nosocomial infections. Dickson Brewster MD
[2018-01-25] MEDS: Enoxaparin 30 mg Syringe SC SCH (09:39)
[2018-01-25] MEDS: Lidocaine 5% Patch TD SCH (09:40)
[2018-01-25] MEDS: Calcitonin 200 Int Units/Inh Nasal Spray (3.7 ml) NS SCH (10:23)
[2018-01-25] MEDS: Silver Sulfadiazine 1% Cream (25 gm) TP SCH (13:23)
[2018-01-25 16:58] VITALS: PULSE 78; RESP 18; TEMP 97.8; O2SAT 100
[2018-01-25] MEDS: Latanoprost 2.5 ml Opht Soln OU SCH (21:05)
[2018-01-25] MEDS: Insulin Detemir 100 units/ml Vial (Levemir) SC SCH (21:05)
--- NOTE | 2018-01-26 01:29 | PN ---
DATE: 01/23/2018 SUBJECTIVE: Patient is comfortable, in no distress. He seems walking with stability. He is sitting, playing cards, asking me to wait for him to finish his card. There is no distress and he seems happy to be going home. Patient then go back to his daughter, Lucina and seems to be comfortable being going home and he wants to come to the doctor office once a month. PHYSICAL EXAMINATION: VITAL SIGNS: On 01/23 is as follow: Temperature 98.7, heart rate 80, blood pressure 128/71, respirations 18, sat 97%. HEAD AND NECK: Normal. No JVD. No thyromegaly. CHEST: Clear. Good air entry. CARDIAC: First sound and second sound normal. ABDOMEN: Soft and nontender. EXTREMITIES: No edema. NEUROLOGIC: Normal. BACK: There is a patch in the upper lumbar area with sacral decubitus. LABORATORY DATA: 190, 180 blood sugar . Laboratory noted as above. IMPRESSION AND PLAN: 1. Sacral decubitus and upper lumbar decubitus ulcers. No evidence of osteomyelitis. Continue Optifoam plus local wound care. 2. Diabetes type 2. Continue insulin, Levemir plus insulin coverage and oral hypoglycemic pills, glipizide (Glucotrol) 5 mg. 3. Hypertension, stable. 4. Schizoaffective disorder. Continue Abilify plus Ativan. 5. Chronic back pain. Patient seems okay without any oxycodone. We will continue to follow that. Continue Lyrica. Continue Tylenol, ReQuip and seems doing okay. 6. Chronic multiple compression fractures of the spine. Miacalcin nasal spray on alternate nostrils once a day. Continue that. 7. Patient does have chronic glaucoma. Continue eye drops. Continue current therapy. Follow up clinically. We will make arrangement to be discharged on Friday. Ike Ngo MD
--- NOTE | 2018-01-26 02:09 | PN ---
DATE: 01/24/2018 SUBJECTIVE: An 87-year-old male, who seems stable. Today, seen on 01/24/2018, ready to go home. He is asking "why they are late to pick me up". He has no other complaint. He is ready for discharge. He has no chest pain, no short of breath. No nausea, no vomiting. PHYSICAL EXAMINATION: VITAL SIGNS: Temperature is 98.1, heart rate 81, blood pressure 127/72, respirations 16, sat 98%. HEAD AND NECK: Normal. No JVD. No thyromegaly. CHEST: Clear, good air entry. CARDIAC: First sound and second sound normal. There is systolic murmur. ABDOMEN: Soft, nontender. EXTREMITIES: Mild edema. NEUROLOGIC: Seems normal except he has kyphotic postures when he walks, but he seems walking with hand support on the bed. Neurological exam is stable, nonfocal. He is alert, awake, and oriented. LABORATORY DATA: Sugar is 164 to 179. IMPRESSION AND PLAN: 1. Multiple compression fractures of the lumbosacral spine. Continue Miacalcin, Tylenol p.r.n. 2. Upper lumbar spine bed sore, decubiti. Continue local wound care and Optifoam, seems doing well. 3. Diabetes type 2, using insulin. Continue Levemir 20 units plus insulin coverage and glipizide. 4. Glaucoma. 5. Patient does have history of congestive heart failure, coronary artery disease, seems stable. We will continue Lasix 20 mg daily. Continue gastrointestinal and deep vein thrombosis prophylaxis. 6. Chronic back pain with leg pain, sometimes leg cramps. Continue Requip plus Lyrica. He seems doing well with current medications. 7. Schizoaffective disorder. Continue Abilify plus Ativan. Patient will be discharged home late today, maybe when the daughter come and we will discuss further. All prescription has been faxed to [facility] . Ike Ngo MD
[2018-01-26] MEDS: Pantoprazole 40 mg EC Tab PO SCH (05:03)
[2018-01-26] MEDS: Insulin Reg-LOW-Coverage SC SCH ×4 (06:36→21:32)
[2018-01-26] MEDS: Menthol/Methyl Salicylate Ointment(1 oz) TOP SCH ×2 (10:13→20:23)
[2018-01-26] MEDS: Lidocaine 5% Patch TD SCH ×2 (10:13→10:26)
[2018-01-26] MEDS: Enoxaparin 30 mg Syringe SC SCH (10:13)
[2018-01-26] MEDS: Calcitonin 200 Int Units/Inh Nasal Spray (3.7 ml) NS SCH (10:14)
[2018-01-26] MEDS: Silver Sulfadiazine 1% Cream (25 gm) TP SCH (10:15)
--- NOTE | 2018-01-26 16:21 | PCM.PYCHPN ---
Psychiatric Progress Note - Psychiatric Progress Note Patient seen today, length of contact: 40 Patient Chief Complaint: Patient capable of mood lability perseverative thinking and speech Problems Identified/Issues Discussed: Patient sometimes difficult to control or interact with him because of his single mindedness, including perseveration, rapid speech and at times impulsive demanding this On 53 discussed case with nursing and with social work. I am assured that patient has a home service consultant at all times. His daughter appears to be living with him at least part of the time. Issues of family dynamics were discussed with social work. My sense is that so long as the patient has sufficient home services which is around the clock within services and he is okay to go home. He probably would be better off in an assisted living or care home environment. On January 26 discussed with nursing and with social work patient's pending disposition. Have also completed a PAS SR form. Patient remains perseverative, somatically preoccupied. He is concerned about the clothing he is being given a shirt as he feels a T-shirt is an embarrassment to him. Medical Problems: Congestive heart failure, diabetes mellitus, hypertension, BPH, chronic hepatitis C, latent tuberculosis, compression fractures of the lumbar region Diagnostic Results: Laboratory Results - last 72 hr 01/16/18 01/17/18 01/17/18 21:23 06:20 11:37 POC Glucose (mg/dL) 316 H 110 197 H 01/17/18 01/17/18 01/18/18 16:33 21:23 05:23 POC Glucose (mg/dL) 183 H 248 H 169 H 01/18/18 01/18/18 01/18/18 11:21 17:49 21:33 POC Glucose (mg/dL) 83 146 H 271 H 01/19/18 01/19/18 05:44 12:00 POC Glucose (mg/dL) 144 H 114 H DSM 5 Symptoms Update: Remains with prosodic and difficulties. Speech rapid. Difficult to understand at times. Concerned about his health status. Speaks about recent visit by his daughter. Speaks of embarrassment that he will have to walk out without a proper shirt. Medication Change: No Medical Record Reviewed: Yes Mental Status Examination - Cognitive Function Orientation: Place, Situation Memory: Impaired Attention: WNL Concentration: Poor Association: WNL Fund of Knowledge: WNL Decription of patient's judgement and insights: Impaired - Mood Mood: Neutral - Affect Affect: Constricted Additional comments: Generally he speaks with his eyes squinted - Speech Speech: Loud, Stammering, Pressured - Formal Thought Process Formal Thought Process: Other Psychotic Thoughts and Behaviors: None evident - Suicidal Ideation Suicidal Ideation: No - Homicidal Ideation Homicidal Ideation: No Goal/Treatment Plan - Goal/Treatment Plan Need for Continued Stay: Severe functional impairment Progress Toward Problem(s) and Goals/Treatment Plan: Patient now in transitional care unit which is an improvement in his general physical and psychiatric status Case reviewed with director social welfare regard to concerns of care at home. Patient remains communicatively impaired. On January 23 case discussed with social work. Home services being arranged. Patient seems to have adequate home care being planned for his pending discharge. Senior daycare attendance also being looked into. On January 26 have completed a PAS SR form a
--- NOTE | 2018-01-26 19:25 | CP.PCM.PN ---
Subjective - Date & Time of Evaluation Date of Evaluation: 01/26/18 Time of Evaluation: 14:55 - Subjective Subjective: No fevers, not in distress. Objective - Vital Signs/Intake and Output Vital Signs (last 24 hours): Temp Pulse Resp BP Pulse Ox 97.8 F 78 18 150/75 100 01/25/18 16:00 01/25/18 16:00 01/25/18 16:00 01/26/18 05:03 01/25/18 16:00 - Medications Medications: Current Medications Acetaminophen (Tylenol 325mg Tab) 650 mg PO Q8H PRN PRN Reason: Headache Last Admin: 01/26/18 12:30 Dose: 650 mg Aripiprazole (Abilify) 15 mg PO HS MUNA PRN Reason: Protocol Last Admin: 01/25/18 21:04 Dose: 15 mg Ascorbic Acid (Vitamin C 500 Mg Tab) 250 mg PO DAILY MUNA PRN Reason: Protocol Last Admin: 01/26/18 10:15 Dose: 250 mg Calcitonin [place] (Miacalcin) 200 intlu NS DAILY MUNA PRN Reason: Protocol Last Admin: 01/26/18 10:14 Dose: 1 spr Calcium Carbonate (Caltrate) 600 mg PO 0800 MUNA PRN Reason: Protocol Last Admin: 01/26/18 08:10 Dose: 600 mg Camphor/Menthol (Bengay) 0 gm TOP BID MUNA Last Admin: 01/26/18 10:13 Dose: 1 appl Clonidine HCl (Catapres) 0.1 mg PO Q6H PRN; Protocol PRN Reason: Other Docusate Sodium (Colace) 100 mg PO BID MUNA PRN Reason: Protocol Last Admin: 01/26/18 09:42 Dose: Not Given Enoxaparin Sodium (Lovenox) 30 mg SC 1000 MUNA PRN Reason: Protocol Last Admin: 01/26/18 10:13 Dose: 30 mg Ergocalciferol (Drisdol 50,000 Intl Units Cap) 1 cap PO Q7D MUNA PRN Reason: Protocol Last Admin: 01/23/18 17:29 Dose: 1 cap Ferrous Sulfate (Feosol) 324 mg PO 0800,1800 MUNA PRN Reason: Protocol Last Admin: 01/26/18 08:10 Dose: 324 mg Furosemide (Lasix) 20 mg PO 0600 MUNA PRN Reason: Protocol Last Admin: 01/26/18 05:03 Dose: 20 mg Glipizide (Glucotrol) 5 mg PO 0630 MUNA PRN Reason: Protocol Last Admin: 01/26/18 06:36 Dose: Not Given Insulin Detemir (Levemir) 20 unit SC HS MUNA PRN Reason: Protocol Last Admin: 01/25/18 21:05 Dose: 20 unit Insulin Human Regular (Humulin R Low) 0 units SC ACHS MUNA PRN Reason: Protocol Last Admin: 01/26/18 17:02 Dose: Not Given Latanoprost (Xalatan Opht) 0 ml OU HS MUNA PRN Reason: Protocol Last Admin: 01/25/18 21:05 Dose: 2.5 ml Lidocaine (Lidoderm) 1 ea TD DAILY MUNA PRN Reason: Protocol Last Admin: 01/26/18 10:26 Dose: Not Given Lorazepam (Ativan) 0.5 mg PO Q4H PRN; Protocol PRN Reason: Agitation Last Admin: 01/26/18 16:54 Dose: 0.5 mg Pantoprazole Sodium (Protonix Ec Tab) 40 mg PO 0600 MUNA PRN Reason: Protocol Last Admin: 01/26/18 05:03 Dose: 40 mg Pregabalin (Lyrica) 50 mg PO BID MUNA PRN Reason: Protocol Last Admin: 01/26/18 10:28 Dose: 50 mg Ropinirole HCl (Requip) 0.25 mg PO 0800,1800 MUNA PRN Reason: Protocol Last Admin: 01/26/18 08:10 Dose: 0.25 mg Silver Sulfadiazine (Silvadene 1% 25 Gm) 0 gm TP DAILY MUNA PRN Reason: Protocol Last Admin: 01/26/18 10:15 Dose: 25 gm Tamsulosin HCl (Flomax) 0.4 mg PO 1800 MUNA PRN Reason: Protocol Last Admin: 01/25/18 17:49 Dose: 0.4 mg - Constitutional Appears: Chronically Ill - Head Exam Head Exam: NORMAL INSPECTION - Respiratory Exam Respiratory Exam: Decreased Breath Sounds - Cardiovascular Exam Cardiovascular Exam: +S1, +S2 - GI/Abdominal Exam GI & Abdominal Exam: Soft. absent: Tenderness Assessment and Plan - Assessment and Plan (Free Text) Plan: Assessment lumbar compression fractures; no evidence of bacterial infection or sepsis CAD with chronic CHF DM HTN BPH history of hepatitis C history of latent TB schizophrenia bipolar disorder Plan continue to monitor off antibiotics since he is at risk for hospital-acquired infections
[2018-01-26] MEDS: Latanoprost 2.5 ml Opht Soln OU SCH (21:32)
[2018-01-26] MEDS: Insulin Detemir 100 units/ml Vial (Levemir) SC SCH (22:33)
[2018-01-27] MEDS: Pantoprazole 40 mg EC Tab PO SCH (05:31)
[2018-01-27 05:39] VITALS: BP 116/64
[2018-01-27] MEDS: Insulin Reg-LOW-Coverage SC SCH ×2 (06:29→11:41)
--- NOTE | 2018-01-27 09:12 | PN ---
DATE: 01/26/2018 SUBJECTIVE: An 87-year-old male in TCU, getting physical therapy. The patient is supposedly to be discharged, but we have some resistance from the patient, does not want to go back home, does not want to go rehab. There is no thinking about custodial and we had a conflict of the patient resistant to be discharged and he wants some help to make his decisions. Although, I spoke to him to go to his daughter's house as he came from, [place], but he seems resistant to go. The patient physically in no distress. No chest pain. Not short of breath. He just sometimes gets agitated with the family, but otherwise stable. PHYSICAL EXAMINATION: VITAL SIGNS: Temperature 97.8, blood pressure is 150/75, respirations 18, sat 100% on room air. HEAD AND NECK: Normal. No JVD. No thyromegaly. CHEST: Clear. CARDIAC: First sound and second sound normal. There is systolic murmur. LUNGS: Clear. Good air entry. ABDOMEN: Soft, nontender. EXTREMITIES: Mild edema. BACK: There is Optifoam on the upper lumbar spine area covering the decubitus ulcer. NEUROLOGIC: General weakness. Gait instability. Otherwise, nonfocal. The patient is alert, awake, oriented to the place and time and person. LABORATORY DATA: Blood sugar 204 range, earlier it was 138. Otherwise labs are stable. IMPRESSION AND PLAN: 1. Chronic upper lumbar bedsore. Continue local wound care. The patient is getting Silvadene, getting Optifoam coverage. He is also getting Voltaren gel, lidocaine cream for his upper abdomen and chest wall, back area. The patient does have difficulty communications. When we talk to him, it is not clear, but we will continue listening and helping the patient. 2. The patient has schizoaffective disorder. Discussed with Dr. Alcaraz about admitting him to Psychiatric floor, but he seems stable psychiatric benites and we will talk to him again about the patient and the discharge plan for him. Continue Abilify 15 mg p.o. at bedtime and Ativan 0.5 mg every 4 hours p.r.n. The patient also has chronic constipations. Continue Colace. The patient is getting iron pills may be that is why, but seems doing well. 3. Diabetes. Continue Glucotrol 5 mg once a day plus Levemir 20 mg once a day. The patient is also getting insulin coverage p.r.n. 4. Chronic back pain. The patient has multiple compression fractures, chronic. Continue Lyrica. Continue Requip and Tylenol p.r.n. for pain. Seems doing okay. Continue gastrointestinal and deep venous thrombosis prophylaxis. 5. Prostate enlargement, mild hypertension, chronic arthritis, glaucoma. Continue Xalatan eye drops and continue current medications. The current medications the patient has are as follow, Abilify 15 mg p.o. at bedtime, Ativan 0.5 mg every 4 hours p.r.n., [place] topically to the body to the back area t.i.d., calcium 600 mg once a day, Catapres 0.1 every 6 hours p.r.n., Colace 100 b.i.d., Vitamin D once a week, iron pills 324 mg b.i.d., Flomax 0.4 mg once a day, Glucotrol 5 mg p.o. daily, insulin coverage four times daily with low algorithm, Lasix 20 mg p.o. daily, Levemir 20 mg subcutaneous at bedtime, Lidoderm patch 1 topically daily, Lovenox 30 mg subcutaneous daily, Lyrica 50 mg p.o. b.i.d., Miacalcin 200 International Units everyday on alternating nostril, Protonix 40 mg once a day, Requip 0.25 mg b.i.d., Silvadene cream 1% apply to the wound area, Tylenol 650 mg every 8 hours p.r.n., vitamin C 500 mg he is getting at 250 mg p.o. daily, Xalatan eye drops in each eye. Continue current therapy. We will reassess the patient again for discharge planning again. Refused to be discharged yesterday. We will get back to Dr. Alcaraz, mental reevaluation, psychological reevaluations and discuss the ability to make decisions. The patient seems not going anywhere by doing this, so we need to clarify his mental status and ability and judgement in making decisions. We will follow up on him. We will keep the patient until we clarify his ability to make the sound decision for his health. Ike Ngo MD [facility] # [id number]
[2018-01-27] MEDS: Lidocaine 5% Patch TD SCH ×2 (10:09→10:24)
[2018-01-27] MEDS: Menthol/Methyl Salicylate Ointment(1 oz) TOP SCH ×2 (10:09→10:21)
[2018-01-27] MEDS: Silver Sulfadiazine 1% Cream (25 gm) TP SCH ×2 (10:10→10:26)
[2018-01-27] MEDS: Enoxaparin 30 mg Syringe SC SCH ×3 (10:10→12:20)
[2018-01-27] MEDS: Calcitonin 200 Int Units/Inh Nasal Spray (3.7 ml) NS SCH ×2 (10:11→10:25)
--- NOTE | 2018-01-27 14:19 | CP.PCM.PN ---
Subjective - Date & Time of Evaluation Date of Evaluation: 01/27/18 Time of Evaluation: 11:20 - Subjective Subjective: No fevers, not in distress, afebrile, no diarrhea. Objective - Vital Signs/Intake and Output Vital Signs (last 24 hours): Temp Pulse Resp BP Pulse Ox 97.8 F 78 18 116/64 100 01/25/18 16:00 01/25/18 16:00 01/25/18 16:00 01/27/18 05:29 01/25/18 16:00 - Medications Medications: Current Medications Acetaminophen (Tylenol 325mg Tab) 650 mg PO Q8H PRN PRN Reason: Headache Last Admin: 01/26/18 12:30 Dose: 650 mg Aripiprazole (Abilify) 15 mg PO HS MUNA PRN Reason: Protocol Last Admin: 01/26/18 21:30 Dose: 15 mg Ascorbic Acid (Vitamin C 500 Mg Tab) 250 mg PO DAILY MUNA PRN Reason: Protocol Last Admin: 01/27/18 10:26 Dose: Not Given Calcitonin [place] (Miacalcin) 200 intlu NS DAILY MUNA PRN Reason: Protocol Last Admin: 01/27/18 10:25 Dose: Not Given Calcium Carbonate (Caltrate) 600 mg PO 0800 MUNA PRN Reason: Protocol Last Admin: 01/27/18 08:30 Dose: Not Given Camphor/Menthol (Bengay) 0 gm TOP BID MUNA Last Admin: 01/27/18 10:21 Dose: Not Given Clonidine HCl (Catapres) 0.1 mg PO Q6H PRN; Protocol PRN Reason: Other Docusate Sodium (Colace) 100 mg PO BID MUNA PRN Reason: Protocol Last Admin: 01/27/18 10:22 Dose: Not Given Enoxaparin Sodium (Lovenox) 30 mg SC 1000 MUNA PRN Reason: Protocol Last Admin: 01/27/18 10:25 Dose: Not Given Ergocalciferol (Drisdol 50,000 Intl Units Cap) 1 cap PO Q7D MUNA PRN Reason: Protocol Last Admin: 01/23/18 17:29 Dose: 1 cap Ferrous Sulfate (Feosol) 324 mg PO 0800,1800 MUNA PRN Reason: Protocol Last Admin: 01/27/18 09:00 Dose: Not Given Furosemide (Lasix) 20 mg PO 0600 MUNA PRN Reason: Protocol Last Admin: 01/27/18 05:29 Dose: 20 mg Glipizide (Glucotrol) 5 mg PO 0630 MUNA PRN Reason: Protocol Last Admin: 01/27/18 05:29 Dose: 5 mg Insulin Detemir (Levemir) 20 unit SC HS MUNA PRN Reason: Protocol Last Admin: 01/26/18 22:33 Dose: 20 unit Insulin Human Regular (Humulin R Low) 0 units SC ACHS MUNA PRN Reason: Protocol Last Admin: 01/27/18 06:29 Dose: Not Given Latanoprost (Xalatan Opht) 0 ml OU HS MUNA PRN Reason: Protocol Last Admin: 01/26/18 21:32 Dose: 2.5 ml Lidocaine (Lidoderm) 1 ea TD DAILY MUNA PRN Reason: Protocol Last Admin: 01/27/18 10:24 Dose: Not Given Lorazepam (Ativan) 0.5 mg PO Q4H PRN; Protocol PRN Reason: Agitation Last Admin: 01/26/18 16:54 Dose: 0.5 mg Pantoprazole Sodium (Protonix Ec Tab) 40 mg PO 0600 MUNA PRN Reason: Protocol Last Admin: 01/27/18 05:31 Dose: 40 mg Pregabalin (Lyrica) 50 mg PO BID MUNA PRN Reason: Protocol Last Admin: 01/27/18 10:25 Dose: Not Given Ropinirole HCl (Requip) 0.25 mg PO 0800,1800 MUNA PRN Reason: Protocol Last Admin: 01/27/18 09:00 Dose: Not Given Silver Sulfadiazine (Silvadene 1% 25 Gm) 0 gm TP DAILY MUNA PRN Reason: Protocol Last Admin: 01/27/18 10:26 Dose: Not Given Tamsulosin HCl (Flomax) 0.4 mg PO 1800 MUNA PRN Reason: Protocol Last Admin: 01/26/18 20:25 Dose: 0.4 mg - Constitutional Appears: Non-toxic, Chronically Ill - Head Exam Head Exam: NORMAL INSPECTION - Respiratory Exam Respiratory Exam: Decreased Breath Sounds - Cardiovascular Exam Cardiovascular Exam: +S1, +S2 - GI/Abdominal Exam GI & Abdominal Exam: Soft. absent: Tenderness Assessment and Plan - Assessment and Plan (Free Text) Plan: Assessment lumbar compression fractures; no evidence of bacterial infection or sepsis CAD with chronic CHF DM HTN BPH history of hepatitis C history of latent TB schizophrenia bipolar disorder Plan continue to monitor off antibiotics since he is at risk for healthcare- associated infections while the patient is in the hospital
== END 2018-01-27 14:11 | DRG 946 ==
LOC: TRCU 17:18
PROVIDERS: ADMIT Internal Medicine; ATTEND Internal Medicine
PROC: F07Z9FZ Gait Training/Functional Ambulation Treatment using Assistive, Adaptive, Supportive or Protective Equipment (ICD-10-PCS; principal; 2018-01-19)
PROC: F07L6YZ Therapeutic Exercise Treatment of Musculoskeletal System - Lower Back / Lower Extremity using Other Equipment (ICD-10-PCS; 2018-01-19)
PROC: F08Z2FZ Grooming/Personal Hygiene Treatment using Assistive, Adaptive, Supportive or Protective Equipment (ICD-10-PCS; 2018-01-19)
PROC: F08Z1ZZ Dressing Techniques Treatment (ICD-10-PCS; 2018-01-21)
DX: R53.1 Weakness (principal); R26.81 Unsteadiness on feet; I25.10 Atherosclerotic heart disease of native coronary artery without angina pectoris; M48.56XD Collapsed vertebra, not elsewhere classified, lumbar region, subsequent encounter for fracture with routine healing; I11.0 Hypertensive heart disease with heart failure; I50.9 Heart failure, unspecified; N40.0 Benign prostatic hyperplasia without lower urinary tract symptoms; F25.9 Schizoaffective disorder, unspecified; F31.9 Bipolar disorder, unspecified; B18.2 Chronic viral hepatitis C; E11.42 Type 2 diabetes mellitus with diabetic polyneuropathy; L89.102 Pressure ulcer of unspecified part of back, stage 2; L89.159 Pressure ulcer of sacral region, unspecified stage; D50.9 Iron deficiency anemia, unspecified; M19.90 Unspecified osteoarthritis, unspecified site; H40.9 Unspecified glaucoma; F41.9 Anxiety disorder, unspecified; K59.09 Other constipation; G89.29 Other chronic pain; R76.11 Nonspecific reaction to tuberculin skin test without active tuberculosis; Z79.4 Long term (current) use of insulin